=== PATIENT | male | born 1965 | race African-American/Black ===

== ENCOUNTER 2018-05-07 08:12 | Observation (INO) ==
[2018-05-07] MEDS ORDERED: Chlorhexidine Gluconate 2% 1 Pack (2 Cloths) TOPICAL SCH (09:15)
[2018-05-07] MEDS ORDERED: Metoprolol Tartrate 25 MG Tablet PO SCH (09:15)
[2018-05-07] MEDS ORDERED: Insulin NovoLIN Regular Correctional Sugar Inj SQ SCH (09:30)
[2018-05-07 09:32] LABS: Baso # (Auto) 0.1 th/mm3 (0.0-0.2); Baso % (Auto) 0.8 % (0.0-2.0); Eos # (Auto) 0.1 th/mm3 (0.0-0.4); Hematocrit 32.5 % (39.0-51.0); Hemoglobin 10.7 gm/dL (13.0-17.0); Lymph # (Auto) 1.9 th/mm3 (1.0-4.8); Lymph % (Auto) 26.9 % (9.0-44.0); Mean Corpuscular HGB Conc 32.8 % (32.0-36.0); Mean Corpuscular Hemoglobin 31.3 pg (27.0-34.0); Mean Corpuscular Volume 95.5 fL (80.0-100.0); Mean Platelet Volume 9.9 fL (7.0-11.0); Mono # (Auto) 0.7 th/mm3 (0.0-0.9); Mono % (Auto) 9.3 % (0.0-8.0); Neut # (Auto) 4.4 th/mm3 (1.8-7.7); Platelet Count 168 th/mm3 (150-450); Red Cell Distribution Width 13.7 % (11.6-17.2)
[2018-05-07 09:44] LABS: INR 1.1 Ratio; Prothrombin Time 10.7 sec (9.8-11.6)
[2018-05-07 09:53] LABS: Calcium 8.9 mg/dL (8.5-10.1); Carbon Dioxide 21.8 meq/L (21.0-32.0); Potassium 4.1 meq/L (3.5-5.1)
[2018-05-07] MEDS ORDERED: Sodium Chlor 0.9% Inj 500 ML IV.SIG SCH (10:00)
--- NOTE | 2018-05-07 11:52 | P.PNVS ---
- Pre-operative Note Planned Procedure: LEFT upper extremity AVF revision Interval History: Pt has been feeling well, no changes in health since H&P last week. Joselo HD yesterday without difficulty. Ready for procedure. Labs: WBC 7.0 th/mm3 (4.0-11.0) 05/07/18 09:10 RBC 3.40 mil/mm3 (4.50-5.90) L 05/07/18 09:10 Hgb 10.7 gm/dL (13.0-17.0) L 05/07/18 09:10 Hct 32.5 % (39.0-51.0) L 05/07/18 09:10 MCV 95.5 fL (80.0-100.0) 05/07/18 09:10 MCH 31.3 pg (27.0-34.0) 05/07/18 09:10 MCHC 32.8 % (32.0-36.0) 05/07/18 09:10 RDW 13.7 % (11.6-17.2) 05/07/18 09:10 Plt Count 168 th/mm3 (150-450) 05/07/18 09:10 MPV 9.9 fL (7.0-11.0) 05/07/18 09:10 INR 1.1 Ratio 05/07/18 09:10 Sodium 139 meq/L (136-145) 05/07/18 09:10 Potassium 4.1 meq/L (3.5-5.1) 05/07/18 09:10 Chloride 103 meq/L (98-107) 05/07/18 09:10 Carbon Dioxide 21.8 meq/L (21.0-32.0) 05/07/18 09:10 Anion Gap 14 meq/L (5-15) 05/07/18 09:10 BUN 64 mg/dL (7-18) H 05/07/18 09:10 Random Glucose 211 mg/dL (74-106) H 05/07/18 09:10 Calcium 8.9 mg/dL (8.5-10.1) 05/07/18 09:10 Blood: T&S Imaging: none needed Orders: NPO VANC 1g IV OCTOR Post-operative Destination: PACU Operative site marked: Yes Consent: Informed consent has been obtained from Ehsan Atkins. I have explained the procedure in detail and discussed the risks, benefits, and potential complications. All questions have been answered. Patient Contact Information: doesn't want anyone called
[2018-05-07] MEDS ORDERED: Glycopyrrolate Inj 1 MG/5 ML Syringe IV.PUSH ONE (12:00)
[2018-05-07] MEDS ORDERED: Sodium Chlor 0.9% Inj 500 ML IV.SIG ONE (12:00)
[2018-05-07] MEDS ORDERED: Succinylcholine Inj 100 MG/5 ML Syringe IV.PUSH ONE (12:00)
[2018-05-07] MEDS ORDERED: Phenylephrine/NS 1000 MCG/10ML Syringe IV.PUSH ONE (12:00)
[2018-05-07] MEDS ORDERED: Lidocaine PF 1% Inj 5 ML Syringe INFILTRATN ONE (12:00)
[2018-05-07] MEDS ORDERED: Heparin 10,000 UNITS/10 ML Vial (for IV use) ONE (12:27)
[2018-05-07] MEDS ORDERED: Protamine Sulfate Inj 50 MG/5 ML Vial ONE (12:27)
[2018-05-07] MEDS ORDERED: Thrombin Topical 20,000 UNIT Spray Kit TOPICAL ONE (12:27)
[2018-05-07] MEDS ORDERED: Heparin/NS PF Inj 500 ML ONE (12:28)
[2018-05-07] MEDS ORDERED: Etomidate Inj 20 MG/10 ML Ampul IV.PUSH ONE (12:32)
[2018-05-07] MEDS ORDERED: Bupivacaine PF 0.5% Inj 30 ML Vial ONE (12:35)
[2018-05-07] MEDS ORDERED: Etomidate Inj 40 MG/20 ML Vial IV.PUSH ONE (12:44)
[2018-05-07] MEDS ORDERED: Bupivacaine PF 0.5% Inj 30 ML Vial INFILTRATN ONE (14:14)
[2018-05-07] MEDS ORDERED: Bisacodyl 10 MG Supp RECTAL PRN (14:55)
[2018-05-07] MEDS ORDERED: Morphine Inj 4 MG/ML Vial IV.PUSH PRN (14:55)
--- NOTE | 2018-05-07 14:55 | P.OP ---
Date of procedure: 05/07/18 Procedure: L UE AVF revision (excision of aneurysmal BC AVF and interposition with 8mm PTFE ) Implants: 8mm PTFE Anesthesia: GETA Surgeon: Ole Hickman MD Respiratory Therapy Technician: Jasmina Elkins Estimated blood loss (mL): 350 IV fluids (mL): 1,350 Pathology: none sent Operation and Findings: large inflamed aneurysmal AVF with skin erosion x 3 successful interposition + thrill and + radial signal will need dialysis catheter placed
[2018-05-07] MEDS ORDERED: Insulin NovoLOG Aspart Correctional Sugar Inj SQ SCH (15:00)
[2018-05-07] MEDS ORDERED: fentaNYL Citrate Inj 100 MCG/2 ML Ampul ONE (15:21)
--- NOTE | 2018-05-07 15:31 | MP ---
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 PROCEDURE PERFORMED: Left upper extremity access revision (interposition with 8 mm PTFE). ATTENDING SURGEON: Ole Hickman MD. [employer] SURGEONS: Zia Sanchez, Ole No ANESTHESIA: General. INDICATION FOR PROCEDURE: Mr. Atkins is a 53-year-old gentleman with a left brachiocephalic fistula. 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 There was obvious skin erosion. He is taken to the operating room for repair. DESCRIPTION OF PROCEDURE: Informed consent was obtained from the patient and he was taken to the operating room and placed supine on the operating table. An appropriate timeout was taken to ensure the patient's identity, operative site and planned procedure. The administration of 1 gram of vancomycin was initiated prior to skin incision and will be discontinued after a single preoperative dose. Vancomycin was chosen because of the patient's end-stage renal disease. Everyone in the room agreed with the timeout and we proceeded. His left arm was prepped and draped. An incision was made longitudinally along the course of the fistula, carried down through subcutaneous tissue with electrocautery with tedious dissection, the proximal aspect of the fistula was encircled with a vessel loop. We then made a separate incision in the proximal aspect of the upper arm, carried down to subcutaneous tissue with electrocautery and the outflow of the fistula was identified and dissected free. We then connected these incisions and all 3 pseudoaneurysmal areas were dissected free from the skin. The patient was systemically heparinized with 3000 units of IV heparin. Proximal and distal control were obtained and the fistula was excised. The proximal and distal ends were spatulated and the 8 mm PTFE was spatulated and sewn end-to-end proximally and distally with 5-0 Prolene suture. At the completion, it was flushed and noted to be hemostatic. There was a thrill in the fistula and Doppler signal in the wrist. The heparin reversed with protamine. The wound was made hemostatic and closed with 2-0 Polysorb to superficialize the fistula and 3-0 Polysorb and 4-0 Monocryl. Sponge and needle counts were correct at the end of the case. I was present and scrubbed and performed the entire procedure. MD JUANY Muse/MOMO , 03:17 PM , 03:29 PM DIMPLE
[2018-05-07] MEDS ORDERED: Dextrose 50% in Water 50 ML Vial IV.PUSH PRN (15:52)
[2018-05-07] MEDS ORDERED: *Meperidine Inj 25 MG/ML Vial PERIprocedural Use ONLY ONE (15:59)
[2018-05-07] MEDS ORDERED: *morphine SULFATE 10 MG/ML PERIprocedure ONLY ONE ×2 (16:17→17:13)
[2018-05-07] MEDS ORDERED: Acetaminophen 325 MG Tablet PO PRN (16:22)
[2018-05-07] MEDS ORDERED: Sod Chloride 0.9% Inj 1,000 ML OTHER PRN ×2 (16:22)
[2018-05-07] MEDS ORDERED: Sod Chloride 0.9% Inj 1,000 ML IV.CONT PRN (16:22)
[2018-05-07] MEDS ORDERED: Gelatin 12 MM/7 MM Topical Foam TOPICAL PRN (16:22)
[2018-05-07] MEDS ORDERED: Heparin 10,000 UNITS/10 ML Vial (for IV use) OTHER PRN (16:22)
[2018-05-07] MEDS ORDERED: Albumin Human 25% Inj 100 ML IV.SIG PRN (16:22)
[2018-05-07] MEDS ORDERED: Heparin 10,000 UNITS/10 ML Vial (for IV use) IV.FLUSH PRN (16:22)
--- NOTE | 2018-05-07 20:22 | ECG ---
Date Performed: 05/07/2018 Time Performed: 08:41:13 PTAGE: 53 years EKG: Sinus rhythm LOW QRS VOLTAGE IN EXTREMITY LEADS PATTERN CONSISTENT WITH PULMONARY DISEASE SEPTAL MYOCARDIAL INFAR CTION , OF INDETERMINATE AGE INFERIOR MYOCARDIAL INFARCTION , PROBABLY OLD ABNORMAL ECG PREVIOUS TRACING : 12/14/2014 19.57 No significant change DOCTOR: Tori Wheeler Interpretating Date/Time 05/07/2018 20:20:38
[2018-05-07] MEDS ORDERED: *Ondansetron Inj 4 MG/2 ML Vial PERIprocedural Use ONLY ONE (20:23)
[2018-05-07] MEDS: Senna/Docusate Sodium 8.6/50 MG Tablet PO SCH (22:01)
[2018-05-07] MEDS: Carvedilol 12.5 MG Tablet PO SCH (22:01)
[2018-05-07] MEDS: Furosemide 40 MG Tablet PO SCH (22:01)
[2018-05-07] MEDS: Gabapentin 300 MG Capsule PO SCH (22:18)
[2018-05-08 03:27] LABS: Hematocrit 34.4 % (39.0-51.0); Hemoglobin 11.3 gm/dL (13.0-17.0); Mean Corpuscular HGB Conc 32.8 % (32.0-36.0); Mean Corpuscular Hemoglobin 31.5 pg (27.0-34.0); Mean Corpuscular Volume 96.2 fL (80.0-100.0); Mean Platelet Volume 9.7 fL (7.0-11.0); Platelet Count 185 th/mm3 (150-450); Red Blood Count 3.57 mil/mm3 (4.50-5.90); Red Cell Distribution Width 13.9 % (11.6-17.2); White Blood Count 9.2 th/mm3 (4.0-11.0)
[2018-05-08 03:49] LABS: Calcium 8.4 mg/dL (8.5-10.1); Carbon Dioxide 22.9 meq/L (21.0-32.0); Potassium 4.2 meq/L (3.5-5.1)
[2018-05-08] MEDS: Insulin NovoLOG Aspart Correctional Sugar Inj SQ SCH ×3 (04:15→12:29)
--- NOTE | 2018-05-08 07:02 | P.PNVS ---
Subjective Post Op Day #: 1 Procedure: L UE access revision (resection of pseudoaneurysm x 3 and interposition) Subjective/Hospital Course: nauseated last night but better today c/o hungry pain controlled hand ok Objective Vital Signs / I&O: Vital Signs 05/07/18 09:19 05/07/18 15:27 05/07/18 15:45 Temperature 98 F 96.9 F L Pulse Rate 81 71 69 Respiratory Rate 20 18 18 Blood Pressure 128/71 120/58 L 97/54 L Pulse Oximetry 98 93 L 94 L 05/07/18 16:00 05/07/18 16:03 05/07/18 16:15 Temperature Pulse Rate 63 65 Respiratory Rate 18 18 Blood Pressure 97/54 L 132/75 Pulse Oximetry 94 L 100 99 05/07/18 17:15 05/07/18 18:15 05/07/18 20:04 Temperature Pulse Rate 59 L 61 71 Respiratory Rate 18 18 Blood Pressure 107/55 L 106/51 L Pulse Oximetry 99 99 05/07/18 20:10 05/08/18 00:00 05/08/18 04:00 Temperature 97.3 F L 98 F Pulse Rate 57 L 71 79 Respiratory Rate 18 16 16 Blood Pressure 111/62 112/59 L Pulse Oximetry 99 100 Intake & Output 05/07/18 05/08/18 05/08/18 18:59 06:59 18:59 Intake Total 2350 / 2350 Output Total 350 / 350 Balance 1999 / 1999 Weight 153.1 kg Intake: IV 1000 / 1000 Heparin/NS PF Inj 500 ML @ 0 500 / 500 mls/hr .ROUTE .STK-MED ONE Rx#: [id number] NS Inj 500 ML @ 30 mls/hr IV. 500 / 500 SIG .Q10H [facility] Rx#:[id number] Anesthesia Amount 1350 / 1350 Output: Estimated Blood Loss 350 / 350 Other: Weight On Admission 153.1 kg Exam: L UE with + thrill mild serosanguinous drainage on dressing hand ok Laboratory Results - last 24 hr 05/07/18 05/07/18 05/07/18 09:06 09:10 09:10 WBC 7.0 RBC 3.40 L Hgb 10.7 L Hct 32.5 L MCV 95.5 MCH 31.3 MCHC 32.8 RDW 13.7 Plt Count 168 MPV 9.9 Neut % (Auto) 62.0 Lymph % (Auto) 26.9 [place] % (Auto) 9.3 H Eos % (Auto) 1.0 Baso % (Auto) 0.8 Neut # (Auto) 4.4 Lymph # (Auto) 1.9 [place] # (Auto) 0.7 Eos # (Auto) 0.1 Baso # (Auto) 0.1 WBC Differential . Differential Comment Auto diff final PT INR Sodium 139 Potassium 4.1 Chloride 103 Carbon Dioxide 21.8 Anion Gap 14 BUN 64 H Creatinine 10.34 H* Estimated GFR 6 L POC Glucose 221 H Random Glucose 211 H Calcium 8.9 Blood Type Blood Type Recheck Antibody Screen 05/07/18 05/07/18 05/07/18 09:10 09:10 16:21 WBC RBC Hgb Hct MCV MCH MCHC RDW Plt Count MPV Neut % (Auto) Lymph % (Auto) [place] % (Auto) Eos % (Auto) Baso % (Auto) Neut # (Auto) Lymph # (Auto) [place] # (Auto) Eos # (Auto) Baso # (Auto) WBC Differential Differential Comment PT 10.7 INR 1.1 Sodium Potassium Chloride Carbon Dioxide Anion Gap BUN Creatinine Estimated GFR POC Glucose 153 H Random Glucose Calcium Blood Type A Positive Blood Type Recheck Not needed Antibody Screen Negative 05/07/18 05/08/18 05/08/18 22:05 03:03 03:03 WBC 9.2 RBC 3.57 L Hgb 11.3 L Hct 34.4 L MCV 96.2 MCH 31.5 MCHC 32.8 RDW 13.9 Plt Count 185 MPV 9.7 Neut % (Auto) Lymph % (Auto) [place] % (Auto) Eos % (Auto) Baso % (Auto) Neut # (Auto) Lymph # (Auto) [place] # (Auto) Eos # (Auto) Baso # (Auto) WBC Differential Differential Comment PT INR Sodium 138 Potassium 4.2 Chloride 102 Carbon Dioxide 22.9 Anion Gap 13 BUN 69 H Creatinine 10.90 H* Estimated GFR 6 L POC Glucose 118 H Random Glucose 150 H Calcium 8.4 L Blood Type Blood Type Recheck Antibody Screen Assessment and Plan - Assessment (1) ESRD (end stage renal disease) on dialysis Code(s): N18.6 - End stage renal disease; Z99.2 - Dependence on renal dialysis Status: Acute - Plan POD#1 s/p L UE AVF revision 1. IR consulted for tunneled catheter placement today - not enough AVF left to safely get HD 2. HD after catheter 3. D/C after that Discharge Planning: today after catheter placement and HD
[2018-05-08 07:38] VITALS: RESP 20
[2018-05-08] MEDS: Carvedilol 12.5 MG Tablet PO SCH (08:28)
[2018-05-08] MEDS: Gabapentin 300 MG Capsule PO SCH (08:28)
[2018-05-08] MEDS: Senna/Docusate Sodium 8.6/50 MG Tablet PO SCH (08:29)
[2018-05-08] MEDS: Furosemide 40 MG Tablet PO SCH (08:29)
--- NOTE | 2018-05-08 09:14 | P.DS ---
Discharge Summary - Admission Date 05/07/18 15:01 - Admission Diagnosis (1) ESRD (end stage renal disease) on dialysis - Discharge Date 05/08/18 - Discharge Diagnosis (1) AVF (arteriovenous fistula) Status: Acute - Summary Brief History from admission: 53/m with ESRD on HD admitted for L UE access revision (resection of pseudoaneurysm x 3 and interposition) Procedure: L UE access revision (resection of pseudoaneurysm x 3 and interposition) Significant Findings: No hand pain Palpable radial pulse Incision intact Swelling (non pitting) to L UE present Abnormal Lab Results 05/07/18 05/07/18 05/07/18 09:06 09:10 09:10 WBC 7.0 RBC 3.40 L Hgb 10.7 L Hct 32.5 L MCV 95.5 MCH 31.3 MCHC 32.8 RDW 13.7 Plt Count 168 MPV 9.9 Neut % (Auto) 62.0 Lymph % (Auto) 26.9 [place] % (Auto) 9.3 H Eos % (Auto) 1.0 Baso % (Auto) 0.8 Neut # (Auto) 4.4 Lymph # (Auto) 1.9 [place] # (Auto) 0.7 Eos # (Auto) 0.1 Baso # (Auto) 0.1 WBC Differential . Differential Comment Auto diff final PT INR Sodium 139 Potassium 4.1 Chloride 103 Carbon Dioxide 21.8 Anion Gap 14 BUN 64 H Creatinine 10.34 H* Estimated GFR 6 L POC Glucose 221 H Random Glucose 211 H Calcium 8.9 Blood Type Blood Type Recheck Antibody Screen 05/07/18 05/07/18 05/07/18 09:10 09:10 16:21 WBC RBC Hgb Hct MCV MCH MCHC RDW Plt Count MPV Neut % (Auto) Lymph % (Auto) [place] % (Auto) Eos % (Auto) Baso % (Auto) Neut # (Auto) Lymph # (Auto) [place] # (Auto) Eos # (Auto) Baso # (Auto) WBC Differential Differential Comment PT 10.7 INR 1.1 Sodium Potassium Chloride Carbon Dioxide Anion Gap BUN Creatinine Estimated GFR POC Glucose 153 H Random Glucose Calcium Blood Type A Positive Blood Type Recheck Not needed Antibody Screen Negative 05/07/18 05/08/18 05/08/18 22:05 03:03 03:03 WBC 9.2 RBC 3.57 L Hgb 11.3 L Hct 34.4 L MCV 96.2 MCH 31.5 MCHC 32.8 RDW 13.9 Plt Count 185 MPV 9.7 Neut % (Auto) Lymph % (Auto) [place] % (Auto) Eos % (Auto) Baso % (Auto) Neut # (Auto) Lymph # (Auto) [place] # (Auto) Eos # (Auto) Baso # (Auto) WBC Differential Differential Comment PT INR Sodium 138 Potassium 4.2 Chloride 102 Carbon Dioxide 22.9 Anion Gap 13 BUN 69 H Creatinine 10.90 H* Estimated GFR 6 L POC Glucose 118 H Random Glucose 150 H Calcium 8.4 L Blood Type Blood Type Recheck Antibody Screen Hospital Course: 53/m with ESRD on HD admitted for L UE access revision (resection of pseudoaneurysm x 3 and interposition) POD 1 S/P L UE access revision (resection of pseudoaneurysm x 3 and interposition) Pt c/o nausea last night but better today pain controlled hand ok Pt clear for d/c post catheter placement and HD Pt to follow up in 3W E-forcse reviewed- 3D post operative pain medications Rx - Discharge Instructions DIET Your may resume a Dialysis Diet ACTIVITY Activity as tolerated No heavy lifting over a gallon of milk for 10 days No B/P readings or lab draws- LEFT arm NO tub baths or swimming until your incision is fully healed WOUND CARE Leave your incision open to air You may apply a dry dressing (4x4 then tape) if drainage is present Call the office to report an increase in pain, swelling, drainage or redness MEDICATIONS You may resume your daily home medications You were prescribed a narcotic pain medication which can cause constipation- Take with an over the counter stool softener You were prescribed a narcotic pain medication which can cause drowsiness- No driving while taking this medication Any questions or concerns: Call [facility] [phone] Discharge Plan - Discharge Disposition Patient Disposition: Discharge Home - Discharge Condition Condition: Good - Discharge Order Discharge Orders: Discharge Order (Routine); Ordered 05/08/18 Ordered By: Emily Martin - Discharge Details Anticipated Discharge Date: 05/08/18 Discharge Comment: D/C today after catheter placement and HD - Physicians Team Primary Care Provider: Primary Care Lois Bradley Attending Provider: Ole Hickman Other Providers: Garry Villalta MD - Rxs /Orders / Referrals /Forms Prescriptions: New oxycodone-acetaminophen [Percocet] 5-325 mg Tablet 1 tab PO Q4-6H PRN (Reason: Pain) 3 Days Qty: 18 RF: 0 Continue atorvastatin 20 mg Tablet 20 mg PO DAILY carvedilol [Coreg] 12.5 mg Tablet 12.5 mg PO BID Catapres furosemide [Lasix] 40 mg Tablet 40 mg PO BID gabapentin [Neurontin] 300 mg Capsule 300 mg PO BID insulin aspart U-100 [Novolog U-100 Insulin aspart] 100 unit/mL Solution 1 sliding scale dose SUB-Q UD insulin glargine [Lantus U-100 Insulin] 100 unit/mL Solution 50 unit SUB-Q BID Norvasc Referrals: Primary Care Lois Bradley [Primary Care Provider] - See Instructions Ole Hickman MD [Physician] - See Instructions (Your post op follow up is scheduled on 06/08/18 at 11:00) - Discharge Instructions Additional Instructions: DIET Your may resume a Dialysis Diet ACTIVITY Activity as tolerated No heavy lifting over a gallon of milk for 10 days No B/P readings or lab draws- LEFT arm NO tub baths or swimming until your incision is fully healed WOUND CARE Leave your incision open to air You may apply a dry dressing (4x4 then tape) if drainage is present Call the office to report an increase in pain, swelling, drainage or redness MEDICATIONS You may resume your daily home medications You were prescribed a narcotic pain medication which can cause constipation- Take with an over the counter stool softener You were prescribed a narcotic pain medication which can cause drowsiness- No driving while taking this medication
[2018-05-08] MEDS ORDERED: ceFAZolin 2 GM Premix Inj 2 GM/50 ML PIGGYBACK IV.SIG ONE (09:51)
[2018-05-08] MEDS ORDERED: fentaNYL Citrate Inj 250 MCG/5 ML Ampul ONE (09:53)
[2018-05-08] MEDS ORDERED: Lidocaine 1%/Epinephrine 1:100,000 Inj 30 ML Vial ONE (10:28)
[2018-05-08] MEDS ORDERED: *Heparin 10,000 UNITS/10 ML Vial Periprocedural ONLY ONE (10:28)
--- NOTE | 2018-05-08 11:03 | P.RAD ---
Post Procedure Progress Note - Pre Procedure Diagnosis (1) ESRD (end stage renal disease) on dialysis - Post Procedure Diagnosis (1) ESRD (end stage renal disease) on dialysis - Procedure Information Procedure Date: 05/08/18 Supervising Radiologist: Billy Bustamante MD Estimated blood loss (mL): 2 Anesthesia: Local, Conscious Sedation - Plan of Activity Patient to Unit: ROPU Patient Condition: Fair Additional Comments: PermCath placed via the right IJ catheter in good position OK for use. See PACS Report for procedural detail/treatment.
[2018-05-08 12:29] VITALS: BP 115/67; PULSE 86; TEMP 98.9; O2SAT 98
--- NOTE | 2018-05-08 14:32 | P.CONNP ---
<Tasneem Samayoa - Last Filed: 05/08/18 14:22> History of Present Illness Service: Nephrology Consult date: 05/08/18 Primary Care Provider: No Primary Care Physician Family Provider: No Primary Care Physician Chief Complaint: AVF pseudoaneurysm History of Present Illness: This is a 53 y/o morbidly obese AAM who was admitted for left arm AVF repair. He had pseudoaneurysm, repaired by Dr. Hickman yesterday. PMH includes ESRD, DM II, CHF, JILLIAN, anemia, and HTN. He had Permcath placed this morning, has tunneling edema, therefore we are required to use a low flow rate. He is alert and oriented, not in distress. He was seen during HD, and has a discharge order for later today. He follows with Dr. Vu in [place]. Review of Systems All other systems reviewed negative except as stated in HPI [facility] - History History Provided By: Patient - Medical History Medical History: Medical History (Last Updated 05/07/18 @ 09:18 by Amelia Reyes) AV fistula CHF (congestive heart failure) Colonoscopy planned Diabetes mellitus Dialysis AV fistula infection ESRD (end stage renal disease) HTN (hypertension) Sleep apnea - Surgical History Surgical History: Surgical History (Last Updated 05/07/18 @ 09:18 by Amelia Reyes) Hx of tonsillectomy - Tobacco History Second Hand Smoke Exposure: No Smoking Status: Never smoker - Alcohol History How Often Do You Have a Drink Containing Alcohol: Monthly or less - Substance Use History Substance History: Active Abuse - Substance Use Type Marijuana Status: Active Frequency: rarely, last time in february Reason for Use: Calm Down Crack/Cocaine Status: Active Frequency: three weeks ago - Travel History History of Recent Travel: No Recent Travel in the [facility] Within the Last 8 Weeks: No Medications and Allergies Allergies Allergy/AdvReac Type Severity Reaction Status Date / Time No Known Allergies Allergy Uncoded 09/24/14 07:33 Home Medications Medication Instructions Recorded Confirmed Type Catapres 05/07/18 History Norvasc 05/07/18 05/07/18 History atorvastatin 20 mg PO DAILY 05/07/18 05/07/18 History carvedilol [Coreg] 12.5 mg PO BID 05/07/18 05/07/18 History furosemide [Lasix] 40 mg PO BID 05/07/18 05/07/18 History gabapentin [Neurontin] 300 mg PO BID 05/07/18 05/07/18 History insulin aspart U-100 [Novolog 1 sliding scale dose SUB-Q UD 05/07/18 05/07/18 History U-100 Insulin aspart] insulin glargine [Lantus U-100 50 unit SUB-Q BID 05/07/18 05/07/18 History Insulin] Active Medications: Active Medications Acetaminophen (Tylenol) 650 mg PO UNSCH PRN PRN Reason: SEE LABEL COMMENTS Aspirin (Aspirin Chew) 81 mg PO DAILY [facility] Last Admin: 05/08/18 08:28 Dose: 81 mg Atorvastatin Calcium (Lipitor) 20 mg PO DAILY [facility] Last Admin: 05/08/18 08:28 Dose: 20 mg Bisacodyl (Dulcolax Supp) 10 mg RECTAL DAILY PRN PRN Reason: SEVERE CONSITIPATION Carvedilol (Coreg) 12.5 mg PO BID [facility] Last Admin: 05/08/18 08:28 Dose: 12.5 mg Chlorhexidine Gluconate (Chlorhexidine 2% Cloth) 3 pack [employer] [facility] Stop: 05/10/18 09:01 Last Admin: 05/07/18 09:44 Dose: 3 pack Clonidine HCl (Catapres) 0.1 mg PO UNSCH PRN PRN Reason: SEE LABEL COMMENTS Dextrose (D50w Vial) 50 ml IV.PUSH UNSCH PRN PRN Reason: PER HYPOGLYCEMIA PROTOCOL Diphenhydramine HCl (Benadryl) 25 mg PO UNSCH PRN PRN Reason: SEE LABEL COMMENTS Epoetin James (Epogen Inj) 4,000 unit IV.PUSH UNSCH PRN PRN Reason: SEE LABEL COMMENTS Furosemide (Lasix) 40 mg PO BID [facility] Last Admin: 05/08/18 08:29 Dose: 40 mg Gabapentin (Neurontin) 300 mg PO DAILY [facility] Last Admin: 05/08/18 08:28 Dose: 300 mg Gelatin (Gelfoam 12 Mm/7 Mm Topical) 1 foam TOPICAL PRN PRN PRN Reason: help stop bleeding from site Gentamicin Sulfate (Gentamicin Inj) 20 mg OTHER WITH DIALYSIS PRN PRN Reason: Dwell Gentamycin Lock Glucagon (Glucagon Inj) 1 mg OTHER PRN PRN PRN Reason: for Hypoglycemia Protocol Heparin Sodium (Porcine) (Heparin Inj) 5,000 units SQ Q8HR [facility] Heparin Sodium (Porcine) (Heparin Inj) 8,000 units IV.FLUSH WITH DIALYSIS PRN PRN Reason: for machine prime Heparin Sodium (Porcine) (Heparin Inj) 1,000 units OTHER WITH DIALYSIS PRN PRN Reason: Dwell Heparin to Fill Catheter Hydromorphone HCl (Dilaudid) 2 mg PO Q4H PRN PRN Reason: PAIN SCALE 6 TO 10 Last Admin: 05/08/18 04:21 Dose: 2 mg Lactated Ringer's (Lr 1000 Ml Inj) 1,000 mls @ 30 mls/hr IV.SIG .Q24H [facility] Stop: 05/10/18 09:01 Last Admin: 05/07/18 09:30 Dose: 30 mls/hr Sodium Chloride (Ns Inj) 500 mls @ 30 mls/hr IV.SIG .Q10H [facility] Stop: 05/10/18 09:01 Last Infusion: 05/07/18 12:43 Dose: Infused Albumin Human (Flexbumin 25% Inj) 100 mls @ 60 mls/hr IV.SIG WITH DIALYSIS PRN PRN Reason: hypotension / volume replace Sodium Chloride (Ns Inj) 1,000 mls @ 0 mls/hr OTHER .Q0M PRN PRN Reason: for prime and rinse back Sodium Chloride (Ns Inj) 1,000 mls @ 200 mls/hr OTHER .Q5H PRN PRN Reason: for dialyzer flush PRN Sodium Chloride (Ns Inj) 1,000 mls @ 0 mls/hr IV.CONT .Q0M PRN PRN Reason: hypotension / volume replace Insulin Aspart (Novolog Insulin Correctional Sugar Inj) 0 unit SQ ACHS [facility]; Protocol Last Admin: 05/08/18 12:29 Dose: Not Given Insulin Human Regular (Novolin R Correctional Sugar Inj) 0 units SQ [employer]OR [facility] ; Protocol Stop: 05/10/18 09:20 Last Admin: 05/07/18 09:45 Dose: 4 units Lactulose (Lactulose Liq) 30 ml PO DAILY PRN PRN Reason: SEVERE CONSITIPATION Mannitol (Mannitol Inj) 12.5 gm IV.PUSH PRN PRN PRN Reason: hypotension / volume replace Metoprolol Tartrate (Lopressor) 25 mg PO [employer] [facility] Stop: 05/10/18 09:01 Last Admin: 05/07/18 09:20 Dose: 25 mg Miscellaneous Information (Mis Nursing Information) 1 each OTHER UNSCH PRN PRN Reason: SEE LABEL COMMENTS Stop: 05/08/18 15:27 Morphine Sulfate (Morphine Inj) 2 mg IV.PUSH Q1H PRN PRN Reason: BREAKTHROUGH PAIN Nitroglycerin (Nitrostat Sl) 0.4 mg SL Q5M PRN PRN Reason: CHEST PAIN Oxycodone HCl (Roxicodone) 5 mg PO Q4H PRN PRN Reason: PAIN SCALE 1 TO 5 Last Admin: 05/08/18 08:29 Dose: 5 mg Povidone Iodine (Betadine 5% Antisepsis Kit) 1 applicatio EACH NARE [employer] [facility] Stop: 05/10/18 09:01 Last Admin: 05/07/18 09:44 Dose: 1 applicatio Senna/Docusate Sodium (Carmelina-Colace) 1 tab PO BID [facility] Last Admin: 05/08/18 08:29 Dose: 1 tab Sennosides (Senokot) 17.2 mg PO Q12H PRN PRN Reason: Moderate Constipation Sodium Chloride (Ns Flush) 5 ml IV.FLUSH PRN PRN PRN Reason: flush each lumen during HD Last Admin: 05/08/18 08:29 Dose: 5 ml Sodium Chloride (Ns Flush) 0 ml IV.FLUSH PRN PRN PRN Reason: SEE DOSE INSTRUCTIONS Exam Vital signs: Vital Signs 05/07/18 15:27 05/07/18 15:45 05/07/18 16:00 Temperature 96.9 F L Pulse Rate 71 69 63 Respiratory Rate 18 18 18 Blood Pressure 120/58 L 97/54 L 97/54 L Pulse Oximetry 93 L 94 L 94 L 05/07/18 16:03 05/07/18 16:15 05/07/18 17:15 Temperature Pulse Rate 65 59 L Respiratory Rate 18 18 Blood Pressure 132/75 107/55 L Pulse Oximetry 100 99 99 05/07/18 18:15 05/07/18 20:04 05/07/18 20:10 Temperature Pulse Rate 61 71 57 L Respiratory Rate 18 18 Blood Pressure 106/51 L 111/62 Pulse Oximetry 99 99 05/08/18 00:00 05/08/18 03:53 05/08/18 04:00 Temperature 97.3 F L 98 F Pulse Rate 71 78 79 Respiratory Rate 16 16 Blood Pressure 112/59 L Pulse Oximetry 100 05/08/18 04:53 05/08/18 05:53 05/08/18 06:53 Temperature Pulse Rate 61 71 78 Respiratory Rate Blood Pressure Pulse Oximetry 05/08/18 07:00 05/08/18 07:30 05/08/18 07:35 Temperature 98.2 F Pulse Rate 80 81 Respiratory Rate 20 Blood Pressure 118/70 Pulse Oximetry 92 L 97 05/08/18 08:00 05/08/18 09:00 05/08/18 11:15 Temperature 97.9 F Pulse Rate 84 86 76 Respiratory Rate 20 Blood Pressure 163/63 H Pulse Oximetry 97 05/08/18 11:30 05/08/18 12:00 05/08/18 12:27 Temperature 98.9 F Pulse Rate 75 74 74 Respiratory Rate 20 20 20 Blood Pressure 177/64 H 169/68 H 115/67 Pulse Oximetry 97 100 98 Intake & Output 05/07/18 05/08/18 05/08/18 18:59 06:59 18:59 Intake Total 2350 / 2350 40 / 40 Output Total 350 / 350 35 / 35 Balance 1999 / 1999 5 / 5 Weight 153.1 kg Intake: IV 1000 / 1000 Heparin/NS PF Inj 500 ML @ 0 500 / 500 mls/hr .ROUTE .STK-MED ONE Rx#: [id number] NS Inj 500 ML @ 30 mls/hr IV. 500 / 500 SIG .Q10H [facility] Rx#:[id number] Oral 40 / 40 Anesthesia Amount 1350 / 1350 Output: Urine 35 / 35 Estimated Blood Loss 350 / 350 Other: Date of Last Bowel Movement 05/05/18 Weight On Admission 153.1 kg - Constitutional no acute distress Comments: morbidly obese - Routine HEENT Exam Head: Present: normocephalic - Routine Neck Exam Present: supple, full ROM - Routine Respiratory Exam Present: CTA bilaterally. Absent: accessory muscle use - Routine Cardiovascular Exam Present: RRR, S1, S2 - Routine Abdominal Exam Present: soft, normoactive bowel sounds - Routine Extremities Exam Present: full ROM, pulses intact, AV fistula, vascular access. Absent: edema Comments: Permcath right chest - Routine Skin Exam Present: intact, warm - Routine Neurological Exam Present: alert, oriented X3, CN II-XII intact Results - Lab Results 05/08/18 03:03 05/08/18 03:03 Most recent lab results Calcium 8.4 mg/dL (8.5-10.1) L 05/08/18 03:03 Assessment and Plan - Assessment (1) ESRD (end stage renal disease) on dialysis Code(s): N18.6 - End stage renal disease; Z99.2 - Dependence on renal dialysis Status: Chronic Plan: Seen during dialysis today on a 2K, 250 BFR, goal 1-2 liters. He has outpatient HD arranged in [place], and has next HD Sunday. Advised to limit dietary K intake for now. Limit PO fluid intake Permcath will need to be maintained for 1 month, will see vascular at the end of the week. Stable for discharge from renal perspective. (2) AVF (arteriovenous fistula) Code(s): I77.0 - Arteriovenous fistula, acquired Status: Acute Plan: Vascular following, has appointment at the end of the week. PermCath x 1 month, advised not to shower. Protect left arm from procedures. (3) Anemia Code(s): D64.9 - Anemia, unspecified Status: Acute Plan: Epogen with HD. <Garry Villalta - Last Filed: 05/08/18 19:45> History of Present Illness Primary Care Provider: No Primary Care Physician Family Provider: No Primary Care Physician [facility] - Medical History Medical History: Medical History (Last Updated 05/07/18 @ 09:18 by Amelia Reyes) AV fistula CHF (congestive heart failure) Colonoscopy planned Diabetes mellitus Dialysis AV fistula infection ESRD (end stage renal disease) HTN (hypertension) Sleep apnea - Surgical History Surgical History: Surgical History (Last Updated 05/07/18 @ 09:18 by Amelia Reyes) Hx of tonsillectomy Exam Vital signs: Vital Signs 05/07/18 20:04 05/07/18 20:10 05/08/18 00:00 Temperature 97.3 F L Pulse Rate 71 57 L 71 Respiratory Rate 18 16 Blood Pressure 111/62 Pulse Oximetry 99 05/08/18 03:53 05/08/18 04:00 05/08/18 04:53 Temperature 98 F Pulse Rate 78 79 61 Respiratory Rate 16 Blood Pressure 112/59 L Pulse Oximetry 100 05/08/18 05:53 07/18/18 06:53 05/08/18 07:00 Temperature Pulse Rate 71 78 80 Respiratory Rate Blood Pressure Pulse Oximetry 05/08/18 07:30 05/08/18 07:35 05/08/18 08:00 Temperature 98.2 F Pulse Rate 81 84 Respiratory Rate 20 Blood Pressure 118/70 Pulse Oximetry 92 L 97 05/08/18 09:00 05/08/18 11:15 05/08/18 11:30 Temperature 97.9 F Pulse Rate 86 76 75 Respiratory Rate 20 20 Blood Pressure 163/63 H 177/64 H Pulse Oximetry 97 97 05/08/18 12:00 05/08/18 12:27 Temperature 98.9 F Pulse Rate 74 74 Respiratory Rate 20 20 Blood Pressure 169/68 H 115/67 Pulse Oximetry 100 98 Intake & Output 05/08/18 05/08/18 05/09/18 06:59 18:59 06:59 Intake Total 40 / 40 Output Total 35 / 35 2600 / 2600 Balance 5 / 5 -2600 / -2600 Intake: Oral 40 / 40 Output: Urine 35 / 35 Hemodialysis Amount 2600 / 2600 Other: Date of Last Bowel Movement 05/05/18 Results - Lab Results 05/08/18 03:03 05/08/18 03:03 Most recent lab results Calcium 8.4 mg/dL (8.5-10.1) L 05/08/18 03:03 Assessment and Plan - Assessment (1) ESRD (end stage renal disease) on dialysis Code(s): N18.6 - End stage renal disease; Z99.2 - Dependence on renal dialysis Status: Chronic (2) AVF (arteriovenous fistula) Code(s): I77.0 - Arteriovenous fistula, acquired Status: Acute (3) Anemia Code(s): D64.9 - Anemia, unspecified Status: Acute - Attending Attestation patient was seen and examined. Agree with above assessment and plan.
[2018-05-08] MEDS ORDERED: Heparin - SQ 10,000 UNITS/ML Vial SQ SCH (15:00)
--- NOTE | 2018-05-15 16:58 | IR ---
EXAM DATE: 05/08/2018 11:43 AM EDT AGE/SEX: 53 years / Male INDICATIONS: Dialysis patient needs cathter for dialysis while his AV fistula matures. CLINICAL DATA: This is the patient's initial encounter. Patient reports that signs and symptoms have been present for 2 days and indicates a pain score of 7/10. MEDICAL/SURGICAL HISTORY: Hypertension. Diabetes. Renal disease, end stage. COPD, Pacemaker . Lt AVF COMPARISON: . FLUORO TIME (min): 1.49 IMAGE SERIES: 1 ACCESS SITE: SEDATION TIME (min): 30 MEDICATION(S): 1 mg midazolam (Versed) IV 50 mcg fentanyl (Sublimaze) IV Prophylactic antibiotics were administered with appropriate pre-procedure timing. Vancomycin within 2 hrs of procedure, Ancef (or alternative) within 1 hr of procedure. DEVICE(S): 23 cm maya cath . . PROCEDURE: 1. Ultrasound-guided venipuncture. 2. PermaCath placement. 3. Conscious sedation with continuous EKG and oximetry monitoring. The risks, benefits and alternatives to the procedure were explained and verbal and written consent w as obtained. The site was prepped in sterile fashion. Full sterile technique was used, including ca p, mask, sterile gloves and gown and a large sterile sheet. Hand hygiene and 2% chlorhexidine and/or betadine/alcohol prep was utilized per protocol for cutaneous antisepsis. Sterile gel and sterile p robe cover were utilized for ultrasound guidance. The skin and subcutaneous tissues were infiltrated with local anesthetic solution. With ultrasound and fluoroscopic guidance a dermatotomy was created over the right internal jugular v ein. A micropuncture set was used to access the targeted vein and serial dilatation was performed to accept the prescribed length catheter. A subcutaneous tunnel was created in a retrograde fashion th e catheter was pulled through the tunnel. The catheter was flushed and assembled and locked with hep sivan. The catheter was sutured in place. Conscious sedation was performed with the prescribed dosages and duration as above in the presence of an independent trained radiology nurse to assist in the monitoring of the patient. EKG and oximetry remained stable throughout the procedure. The patient tolerated the procedure well and there were n o complications. The patient was sent to post anesthesia recovery in stable condition. 1. Uncomplicated PermaCath placement as above. Electronically signed by: Billy Bustamante MD 05/15/2018 4:57 PM EDT
== END 2018-05-08 17:35 | disposition home or self-care (01) ==
LOC: HCPC 08:12 → HSDI 08:12 → HSDC 08:12 → HCPC 20:30
PROVIDERS: ADMIT Surgery; ATTEND Surgery
PROC: AVGFTUE (ICD-10-PCS; 2018-05-07 12:43)

== ENCOUNTER 2018-12-12 06:16 | Observation (INO) ==
[2018-12-12] MEDS ORDERED: Protamine Sulfate Inj 50 MG/5 ML Vial ONE (06:41)
[2018-12-12] MEDS ORDERED: Bupivacaine PF 0.5% Inj 10 ML Vial ONE (06:47)
[2018-12-12] MEDS ORDERED: Heparin 10,000 UNITS/10 ML Vial (for IV use) ONE (06:47)
[2018-12-12] MEDS ORDERED: Heparin/NS PF Inj 500 ML ONE (06:48)
[2018-12-12] MEDS ORDERED: Thrombin Topical Soln 20,000 UNIT Vial TOPICAL ONE (06:48)
[2018-12-12] MEDS ORDERED: Sodium Chlor 0.9% Inj 250 ML ONE (06:50)
[2018-12-12] MEDS ORDERED: Metoprolol Tartrate 25 MG Tablet PO ONE (07:15)
[2018-12-12] MEDS ORDERED: Chlorhexidine Gluconate 2% 1 Pack (2 Cloths) TOPICAL ONE (07:15)
[2018-12-12] MEDS ORDERED: Sodium Chlor 0.9% Inj 500 ML IV.CONT ONE (07:15)
[2018-12-12] MEDS ORDERED: Acetaminophen 500 MG Tablet ONE (07:26)
[2018-12-12] MEDS ORDERED: Gabapentin 400 MG Capsule ONE (07:27)
[2018-12-12] MEDS ORDERED: fentaNYL Citrate Inj 250 MCG/5 ML Ampul ONE (07:28)
--- NOTE | 2018-12-12 07:36 | XR ---
EXAM DATE: 12/12/2018 7:31 AM EST AGE/SEX: 53 years / Male INDICATIONS: Evaluate for pneumonia, pneumothorax or communicable disease. Preop chest for left arm permacath revision today. CLINICAL DATA: This is the patient's initial encounter. Patient reports that signs and symptoms have been present for 1 day and indicates a pain score of 0/10. MEDICAL/SURGICAL HISTORY: Cardiovascular disease. dialysis, renal failure Pacemaker. permacath COMPARISON: No prior exams available for comparison. FINDINGS: A single AP view of the chest demonstrates the lungs to be symmetrically aerated without evidence of mass, infiltrate or effusion. Left-sided pacemaker/defibrillator unchanged. Right jugular vascular ca theter unchanged. The cardiomediastinal contours are unremarkable. Osseous structures are intact. CONCLUSION: No acute cardiopulmonary disease. Electronically signed by: Lei Aparicio MD Board Certified Radiologist 12/12/2018 7:35 AM EST
--- NOTE | 2018-12-12 07:45 | P.HPVS ---
History of Present Illness Chief Complaint: Aneurysmal LEFT arm AVF History of Present Illness: 53 yo male with ESRD with functioning LEFT arm AVF aneurysmal proximal AVF no skin erosion - Inpatient Certification If this patient has been admitted as an Inpatient: I certify that the inpatient services were ordered in accordance with Medicare regulations governing the order. This includes certification that hospital inpatient services are reasonable and necessary and in the case of services not specified as inpatient-only under 42 CFR 419.22(n), that they are appropriately provided as inpatient services in accordance to with the 2-midnight benchmark under 43 CFR 412.3(e) Estimated Total Length of Stay (Days): 2 Plans for Post Hospital Care: Home Review of Systems All other systems reviewed negative except as stated in HPI [facility] - History History Provided By: Patient - Medical History Medical History: Medical History (Last Reviewed 12/12/18 @ 07:44 by Ole Hickman MD) AV fistula CHF (congestive heart failure) Colonoscopy planned Diabetes mellitus Dialysis AV fistula infection ESRD (end stage renal disease) HTN (hypertension) Sleep apnea - Surgical History Surgical History: Surgical History (Last Reviewed 12/12/18 @ 07:44 by Ole Hickman MD) AICD (automatic cardioverter/defibrillator) present Hx of tonsillectomy - Tobacco History Second Hand Smoke Exposure: No Tobacco Use In Past 30 Days: No Smoking Status: Never smoker - Alcohol History How Often Do You Have a Drink Containing Alcohol: Never - Substance Use History Substance History: No History of Abuse - Travel History History of Recent Travel: No Recent Travel in the [place] Within the Last 8 Weeks: No Recent Travel Out of the Country Within the Last 8 Weeks: No Medications and Allergies Active Medications: Active Medications Lactated Ringer's (Lr 1000 Ml Inj) 1,000 mls @ 30 mls/hr IV.CONT .Q24H ONE Stop: 12/13/18 07:14 Sodium Chloride (Ns Inj) 500 mls @ 30 mls/hr IV.CONT .[id number] ONE Stop: 12/12/18 23:54 Allergies Allergy/AdvReac Type Severity Reaction Status Date / Time No Known Allergies Allergy Verified 12/12/18 07:10 Home Medications Medication Instructions Recorded Confirmed Type atorvastatin 20 mg PO DAILY 05/07/18 12/12/18 History carvedilol [Coreg] 12.5 mg PO BID 05/07/18 12/12/18 History furosemide [Lasix] 40 mg PO BID 05/07/18 12/12/18 History gabapentin [Neurontin] 300 mg PO BID 05/07/18 12/12/18 History insulin aspart U-100 [Novolog 10 units SUB-Q BID 05/07/18 12/12/18 History U-100 Insulin aspart] insulin glargine [Lantus U-100 75 unit SUB-Q BID 05/07/18 12/12/18 History Insulin] Physical Exam Vital Signs / I&O: Vital Signs 12/12/18 07:19 Temperature 97.4 F L Pulse Rate 78 Respiratory Rate 20 Blood Pressure 149/86 H Pulse Oximetry 100 Intake & Output 12/11/18 12/12/18 12/12/18 18:59 06:59 18:59 Weight 151.1 kg Other: Weight On Admission 151.1 kg Neuro: alert, oriented, no distress HEENT: NC/AT Neck: no JVD Heart: reg rate Lungs: occ wheeze Vascular: L UE incisions intact aneurysmal proximal AVF Laboratory Results - last 24 hr 12/12/18 07:13 POC Glucose 254 H Impressions Chest X-Ray 12/12/18 00:00 CONCLUSION: No acute cardiopulmonary disease. Caprini VTE Risk Assessment Caprini VTE Risk Assessment: No/Low Risk (score <= 1) (intraop heparin) Caprini Risk Assessment Model: Point Value = 1 Point Value = 2 Point Value = 3 Point Value = 5 Age 41-60 Minor surgery BMI > 25 kg/m2 Swollen legs Varicose veins or History of unexplained or recurrent spontaneous Oral contraceptives or hormone replacement Sepsis (< 1 month) Serious lung disease, including pneumonia (< 1 month) Abnormal pulmonary function Acute myocardial infarction Congestive heart failure (< 1 month) History of inflammatory bowel disease Medical patient at bed rest Age 61-74 Arthroscopic surgery Major open surgery (> 45 min) Laparoscopic surgery (> 45 min) Malignancy Confined to bed (> 72 hours) Immobilizing plaster cast Central venous access Age >= 75 History of VTE Family history of VTE Factor V Leiden Prothrombin [id number] Lupus anticoagulant Anticardiolipin antibodies Elevated serum homocysteine Heparin-induced thrombocytopenia Other congenital or acquired thrombophilia Stroke (< 1 month) Elective arthroplasty Hip, pelvis, or leg fracture Acute spinal cord injury (< 1 month) Prophylaxis Regimen: Total Risk Factor Score Risk Level Prophylaxis Regimen 0-1 Low Early ambulation 2 Moderate Order ONE of the following: *Sequential Compression Device (SCD) *Heparin 5000 units SQ BID 3-4 Higher Order ONE of the following medications: *Heparin 5000 units SQ TID *Enoxaparin/Lovenox 40 mg SQ daily (WT < 150 kg, CrCl > 30 mL/min) *Enoxaparin/Lovenox 30 mg SQ daily (WT < 150 kg, CrCl > 10-29 mL/min) *Enoxaparin/Lovenox 30 mg SQ BID (WT < 150 kg, CrCl > 30 mL/min) AND/OR *Sequential Compression Device (SCD) 5 or more Highest Order ONE of the following medications: *Heparin 5000 units SQ TID (Preferred with Epidurals) *Enoxaparin/Lovenox 40 mg SQ daily (WT < 150 kg, CrCl > 30 mL/min) *Enoxaparin/Lovenox 30 mg SQ daily (WT < 150 kg, CrCl > 10-29 mL/min) *Enoxaparin/Lovenox 30 mg SQ BID (WT < 150 kg, CrCl > 30 mL/min) AND *Sequential Compression Device (SCD) Assessment and Plan - Assessment (1) ESRD (end stage renal disease) on dialysis Code(s): N18.6 - End stage renal disease; Z99.2 - Dependence on renal dialysis Status: Chronic (2) AVF (arteriovenous fistula) Code(s): I77.0 - Arteriovenous fistula, acquired Status: Acute - Plan LEFT arm access revision POA for obs and HD
[2018-12-12] MEDS ORDERED: Gabapentin 400 MG Capsule PO ONE (07:51)
[2018-12-12] MEDS ORDERED: Acetaminophen 500 MG Tablet PO ONE (07:51)
[2018-12-12] MEDS ORDERED: Lidocaine PF 1% Inj 5 ML Syringe OTHER ONE (07:57)
[2018-12-12] MEDS ORDERED: Sodium Chlor 0.9% Inj 250 ML IV.CONT ONE (07:57)
[2018-12-12] MEDS ORDERED: Phenylephrine/NS 1000 MCG/10ML Syringe IV.PUSH ONE (07:57)
[2018-12-12] MEDS ORDERED: Succinylcholine Inj 100 MG/5 ML Syringe IV.PUSH ONE (07:57)
[2018-12-12 08:31] LABS: Baso # (Auto) 0.1 th/mm3 (0.0-0.2); Baso % (Auto) 1.2 % (0.0-2.0); Eos # (Auto) 0.1 th/mm3 (0.0-0.4); Eos % (Auto) 1.4 % (0.0-4.0); Hematocrit 34.6 % (39.0-51.0); Lymph # (Auto) 1.8 th/mm3 (1.0-4.8); Lymph % (Auto) 26.7 % (9.0-44.0); Mean Corpuscular HGB Conc 31.9 % (32.0-36.0); Mean Corpuscular Hemoglobin 30.1 pg (27.0-34.0); Mean Corpuscular Volume 94.5 fL (80.0-100.0); Mono # (Auto) 0.7 th/mm3 (0.0-0.9); Mono % (Auto) 10.1 % (0.0-8.0); Neut % (Auto) 60.6 % (16.0-70.0); Platelet Count 163 th/mm3 (150-450); Red Blood Count 3.66 mil/mm3 (4.50-5.90); Red Cell Distribution Width 15.2 % (11.6-17.2); White Blood Count 6.7 th/mm3 (4.0-11.0)
[2018-12-12 08:43] LABS: Activated Partial Thrombo Time 23.6 sec (23.4-31.7); Prothrombin Time 10.4 sec (9.8-11.6)
[2018-12-12 08:50] LABS: Carbon Dioxide 27.6 meq/L (21.0-32.0); Potassium 3.9 meq/L (3.5-5.1)
[2018-12-12] MEDS ORDERED: Morphine Inj 4 MG/ML Vial IV.PUSH PRN (09:48)
[2018-12-12] MEDS ORDERED: Bisacodyl 10 MG Supp RECTAL PRN (09:48)
--- NOTE | 2018-12-12 09:48 | P.OP ---
- Preoperative Diagnosis (1) ESRD (end stage renal disease) on dialysis (2) AVF (arteriovenous fistula) - Postoperative Diagnosis (1) ESRD (end stage renal disease) on dialysis (2) AVF (arteriovenous fistula) Date of procedure: 12/12/18 Procedure: LEFT UE access revision (interposition w 6mm PTFE) Implants: 6mm PTFE Anesthesia: GETA Surgeon: Ole Hickman MD [employer] Clerk: Ulices Feliciano Estimated blood loss (mL): 50 IV fluids (mL): 650 Pathology: none sent Operation and Findings: aneurysmal proximal AVF resected and replaced with 6mm PTFE remainder of AVF clear for continued use away from incision
[2018-12-12] MEDS ORDERED: Dextrose 50% in Water 50 ML Vial IV.PUSH PRN (09:51)
[2018-12-12] MEDS ORDERED: Heparin - SQ 10,000 UNITS/ML Vial SQ SCH (10:00)
--- NOTE | 2018-12-12 10:18 | MP ---
cc: Ole Hickman MD DATE OF OPERATION: 12/12/2018 PREOPERATIVE DIAGNOSIS: Aneurysmal left upper extremity arteriovenous fistula. POSTOPERATIVE DIAGNOSIS: Aneurysmal left upper extremity arteriovenous fistula. PROCEDURE PERFORMED: Left upper extremity access revision (6 mm PTFE interposition). ATTENDING SURGEON: Ole Hickman MD. INFORMATION TECHNOLOGY OFFICER SURGEON: Ulices Moscoso ANESTHESIA: General. INDICATIONS: Mr. Atkins is a 53-year-old gentleman with a left upper extremity arteriovenous fistula that has been revised in its midsection, but now has a proximal aneurysmal segment. He is taken to the operating room for surgical excision. DESCRIPTION OF PROCEDURE: Informed consent was obtained from the patient was taken to the operating room and placed supine on the operating table. An appropriate timeout was taken to ensure the patient's identity, operative site and planned procedure. The administration of a gram of vancomycin was initiated prior to skin incision and will be discontinued after single preoperative dose. Vancomycin was chosen because of the patient has end-stage renal disease. His left arm was prepped and draped. Incision made along the course of the fistula, carried down through subcutaneous tissue with electrocautery. The distal aspect of the aneurysm, which was PTFE, was encircled with a vessel loop and then we dissected back proximally nearly to the brachial artery, but encompassing the whole aneurysmal segment. The patient was systemically heparinized with 3000 units of IV heparin. Proximal and distal control of the aneurysmal segment were obtained with profunda clamps and a segment was excised. The proximal and distal ends were spatulated and a 6 mm PTFE was brought up of the field, spatulated, and cut appropriately and sewn end-to-end proximally and distally with running 5-0 Prolene suture. At the completion it was flushed and noted to be hemostatic. There was a nice thrill in the fistula and a Doppler signal in the wrist. After reverse protamine the wound was infiltrated with Marcaine, made hemostatic and closed with 2-0 Polysorb, 3-0 Polysorb and 4-0 Monocryl. The sponge and needle counts were correct at the end of the case. I was present, scrubbed, and performed the entire procedure. MD JUANY Muse/lesa , 09:54 AM , 09:59 AM DIMPLE
[2018-12-12] MEDS: Insulin NovoLOG Aspart Correctional Sugar Inj SQ SCH ×3 (11:15→21:38)
[2018-12-12] MEDS ORDERED: Heparin 10,000 UNITS/10 ML Vial (for IV use) OTHER PRN ×2 (15:13)
[2018-12-12] MEDS ORDERED: Sod Chloride 0.9% Inj 1,000 ML IV.CONT PRN (15:13)
[2018-12-12] MEDS ORDERED: Gelatin 12 MM/7 MM Topical Foam TOPICAL PRN (15:13)
[2018-12-12] MEDS ORDERED: Sod Chloride 0.9% Inj 1,000 ML OTHER PRN ×2 (15:13)
[2018-12-12] MEDS ORDERED: Albumin Human 25% Inj 100 ML IV.SIG PRN (15:13)
[2018-12-12] MEDS ORDERED: Acetaminophen 325 MG Tablet PO PRN (15:13)
--- NOTE | 2018-12-12 15:26 | P.CONNP ---
History of Present Illness Service: Nephrology Consult date: 12/12/18 Requesting Physician: Ole Hickman Reason for Consult: End-stage renal disease for hemodialysis Primary Care Provider: No Primary Care Physician Chief Complaint: AV fistula repair History of Present Illness: Patient is a 53-year-old morbidly obese male with history of diabetes, hypertension, end-stage renal disease on hemodialysis at [place] for 5 hours 15 minutes on Sunday, Sunday and Sunday, he had AV fistula left arm which had aneurysmal dilatation, he was here for AV fistula revision and PTFE graft insertion which was done, postoperatively he is doing well he denies any chest pain or shortness of breath, he does have peripheral edema present. Review of Systems Constitutional: Denies anorexia, Denies body ache(s), Denies chills, Denies daytime sleepiness, Denies excessive sweating, Denies fatigue, Denies fever(s), Denies headache(s), Denies increased appetite, Denies lack of energy, Denies malaise, Denies night sweats, Denies weakness, Denies weight gain, Denies weight loss, Denies other Eyes: Denies blind spots, Denies blurry vision, Denies bulging eyes, Denies change in vision, Denies double vision, Denies discharge, Denies dry eyes, Denies floaters, Denies irritation, Denies itchy eyes, Denies loss of vision, Denies pain, Denies requires corrective lenses, Denies sensitivity to light, Denies other Ears, Nose, Mouth, and Throat: Denies abnormal hearing, Denies bleeding gums, Denies bad breath, Denies change in voice, Denies dental pain, Denies difficulty swallowing, Denies dizziness, Denies dry mouth, Denies ear discharge , Denies ear pain, Denies facial pain, Denies headache(s), Denies hearing loss, Denies hoarseness, Denies lip swelling, Denies nosebleed, Denies mouth lesions, Denies mouth pain, Denies nasal congestion, Denies nasal discharge, Denies nasal obstruction, Denies nasal trauma, Denies neck lump, Denies neck pain, Denies nose pain, Denies pain with swallowing, Denies poor balance, Denies post nasal drip, Denies ringing in the ears, Denies sinus pain, Denies sinus pressure , Denies sore throat, Denies throat swelling, Denies tongue swelling, Denies other Cardiovascular: Reports foot swelling, Reports leg swelling, Reports shortness of breath with activity Respiratory: Reports shortness of breath Gastrointestinal: Denies abdominal pain, Denies belching, Denies black, tarry stools, Denies bloating, Denies bright, red blood in stools, Denies change in bowel habits, Denies constant urge to pass stool, Denies change in stools, Denies coffee ground vomit, Denies constipation, Denies cramping, Denies difficulty swallowing, Denies excessive passing of gas, Denies feeling full early, Denies heartburn, Denies incontinent of stools, Denies loose stools, Denies nausea, Denies pain with swallowing, Denies vomiting, Denies vomiting blood, Denies other Genitourinary: Denies blood in semen, Denies blood in urine, Denies decreased urination, Denies difficulty urinating, Denies difficulty with ejaculations, Denies erectile dysfunction, Denies genital lesions, Denies genital pain, Denies painful urination, Denies side pain, Denies frequent nighttime urination , Denies painful ejaculations, Denies penile discharge, Denies scrotal swelling , Denies testicle lump, Denies testicle pain, Denies urinary frequency, Denies urinary hesitancy, Denies urinary incontinence, Denies urinary urgency, Denies other Skin/Breast: Reports other Neurologic: Denies abnormal hearing, Denies abnormal movements, Denies abnormal speech, Denies abnormal walking, Denies behavioral changes, Denies burning sensations, Denies confusion, Denies dizziness, Denies fainting, Denies frequent falls, Denies headache(s), Denies lack of coordination, Denies localized weakness, Denies loss of vision, Denies memory loss, Denies numbness, Denies other visual disturbances, Denies radiating pain, Denies restless legs, Denies convulsions, Denies seizure-like activity, Denies sensory deficit, Denies tingling, Denies tingling/numbness/burning sensations, Denies tremor(s), Denies unsteadiness, Denies weakness, Denies other Psychiatric: Denies abnormal sleep pattern, Denies anxiety, Denies behavioral changes, Denies change in appetite, Denies change in sex drive, Denies confusion , Denies depression, Denies difficulty concentrating, Denies hearing things others do not hear, Denies hopelessness, Denies irritability, Denies lack of enjoyment, Denies memory loss, Denies mood swings, Denies panic attacks, Denies paranoia, Denies seeing things others do not see, Denies sensing things others do not sense, Denies tactile hallucinations, Denies thoughts of hurting/killing others, Denies thoughts of hurting/killing yourself, Denies other Hematologic/Lymphatic: Denies easy bleeding, Denies easy bruising, Denies enlarged lymph nodes, Denies other Allergic/Immunologic: Denies GI upset with certain foods, Denies hives, Denies itchy eyes, Denies lip swelling, Denies seasonal runny nose, Denies throat swelling, Denies tongue swelling, Denies wheezing, Denies other PMFSH - History History Provided By: Patient - Medical History Medical History: Medical History (Last Updated 12/12/18 @ 15:22 by Ada Malik MD) Morbidly obese AV fistula CHF (congestive heart failure) Colonoscopy planned Diabetes mellitus Dialysis AV fistula infection ESRD (end stage renal disease) HTN (hypertension) Sleep apnea - Surgical History Surgical History: Surgical History (Last Reviewed 12/12/18 @ 15:22 by Ada Malik MD) AICD (automatic cardioverter/defibrillator) present Hx of tonsillectomy - Family History Family History: Family History (Last Updated 12/12/18 @ 15:23 by Ada Malik MD) Mother Family history of hypertension - Social History I have reviewed the patient's Social History: Yes - Tobacco History Second Hand Smoke Exposure: No Tobacco Use In Past 30 Days: No Smoking Status: Never smoker - Alcohol History How Often Do You Have a Drink Containing Alcohol: Never - Substance Use History Substance History: No History of Abuse - Travel History History of Recent Travel: No Recent Travel in the [place] Within the Last 8 Weeks: No Recent Travel Out of the Country Within the Last 8 Weeks: No Medications and Allergies Active Medications: Active Medications Aspirin (Aspirin) 325 mg PO DAILY ROSIE Atorvastatin Calcium (Lipitor) 20 mg PO DAILY ROSIE Bisacodyl (Dulcolax Supp) 10 mg RECTAL DAILY PRN PRN Reason: SEVERE CONSITIPATION Carvedilol (Coreg) 12.5 mg PO BID ROSIE Dextrose (D50w Vial) 50 ml IV.PUSH UNSCH PRN PRN Reason: PER HYPOGLYCEMIA PROTOCOL Furosemide (Lasix) 40 mg PO BID ROSIE Gabapentin (Neurontin) 300 mg PO BID ROSIE Glucagon (Glucagon Inj) 1 mg OTHER PRN PRN PRN Reason: for Hypoglycemia Protocol Heparin Sodium (Porcine) (Heparin Inj) 5,000 units SQ Q8H ROSIE Hydromorphone HCl (Dilaudid) 2 mg PO Q4H PRN PRN Reason: PAIN SCALE 6 TO 10 Lactated Ringer's (Lr 1000 Ml Inj) 1,000 mls @ 30 mls/hr IV.CONT .Q24H ONE Stop: 12/13/18 07:14 Sodium Chloride (Ns Inj) 500 mls @ 30 mls/hr IV.CONT .[id number] ONE Stop: 12/12/18 23:54 Insulin Aspart (Novolog Insulin Correctional Sugar Inj) 0 unit SQ ACHS AND 3AM ROSIE; Protocol Lactulose (Lactulose Liq) 30 ml PO DAILY PRN PRN Reason: SEVERE CONSITIPATION Miscellaneous Information ([facility] Information) 1 each OTHER UNSCH PRN PRN Reason: SEE LABEL COMMENTS Stop: 12/13/18 10:19 Morphine Sulfate (Morphine Inj) 2 mg IV.PUSH Q1H PRN PRN Reason: BREAKTHROUGH PAIN Oxycodone HCl (Roxicodone) 5 mg PO Q4H PRN PRN Reason: PAIN SCALE 1 TO 5 Senna/Docusate Sodium (Carmelina-Colace) 1 tab PO BID ROSIE Sennosides (Senokot) 17.2 mg PO Q12H PRN PRN Reason: Moderate Constipation Allergies Allergy/AdvReac Type Severity Reaction Status Date / Time No Known Allergies Allergy Verified 12/12/18 07:10 Home Medications Medication Instructions Recorded Confirmed Type atorvastatin 20 mg PO DAILY 05/07/18 12/12/18 History carvedilol [Coreg] 12.5 mg PO BID 05/07/18 12/12/18 History furosemide [Lasix] 40 mg PO BID 05/07/18 12/12/18 History gabapentin [Neurontin] 300 mg PO BID 05/07/18 12/12/18 History insulin aspart U-100 [Novolog 10 units SUB-Q BID 05/07/18 12/12/18 History U-100 Insulin aspart] insulin glargine [Lantus U-100 75 unit SUB-Q BID 05/07/18 12/12/18 History Insulin] Exam Vital signs: Vital Signs 12/12/18 07:19 12/12/18 10:18 12/12/18 10:30 Temperature 97.4 F L 97.4 F L Pulse Rate 78 65 63 Respiratory Rate 20 15 12 Blood Pressure 149/86 H 136/70 119/73 Pulse Oximetry 100 98 97 12/12/18 10:45 12/12/18 11:00 12/12/18 11:15 Temperature Pulse Rate 62 60 60 Respiratory Rate 14 12 10 L Blood Pressure 119/60 101/51 L 116/59 L Pulse Oximetry 97 97 99 12/12/18 11:30 12/12/18 12:00 12/12/18 13:00 Temperature Pulse Rate 61 62 62 Respiratory Rate 11 L 14 17 Blood Pressure 125/63 123/73 131/73 Pulse Oximetry 99 100 99 12/12/18 14:00 12/12/18 15:05 Temperature Pulse Rate 66 63 Respiratory Rate 13 15 Blood Pressure 143/89 H 146/88 H Pulse Oximetry 99 99 Intake & Output 12/11/18 12/12/18 12/12/18 18:59 06:59 18:59 Intake Total 1150 / 1150 Output Total 50 / 50 Balance 1100 / 1100 Weight 151.1 kg Intake: IV 500 / 500 Heparin/NS PF Inj 500 ML @ 0 500 / 500 mls/hr .[facility]TE [facility] ONE Rx#: [id number] Anesthesia Amount 650 / 650 Output: Blood Draw 50 / 50 Other: Weight On Admission 151.1 kg Narrative: GENERAL: Well-nourished, well-developed morbidly obese patient. SKIN: Warm and dry. HEAD: Normocephalic. EYES: No scleral icterus. No injection or drainage. NECK: Supple, trachea midline. No JVD or lymphadenopathy. CARDIOVASCULAR: Regular rate and rhythm without murmurs, gallops, or rubs. RESPIRATORY: Breath sounds equal bilaterally. No accessory muscle use. GASTROINTESTINAL: Abdomen soft, non-tender, nondistended. EXTREMITIES: 2+ edema AV graft left arm positive bruit NEUROLOGICAL: Awake, alert, and oriented x 3. Non-focal. Results - Lab Results 12/12/18 08:09 12/12/18 08:09 Most recent lab results Calcium 10.0 mg/dL (8.5-10.1) 12/12/18 08:09 Assessment and Plan - Assessment (1) ESRD (end stage renal disease) on dialysis Code(s): N18.6 - End stage renal disease; Z99.2 - Dependence on renal dialysis Status: Chronic Plan: Hemodialysis will be maintained on Sunday, Sunday and Sunday, use bigger dialyzer, discussed with dialysis team orders written for dialysis for tomorrow , high blood flow and high dialysate flow Continue to provide hemodialysis on Sunday and Sunday He may be discharged after dialysis tomorrow AV graft positive bruit (2) S/P arteriovenous (AV) graft placement Code(s): Z98.890 - Other specified postprocedural states Status: Acute Plan: Post surgery positive bruit (3) Anemia Code(s): D64.9 - Anemia, unspecified Status: Acute Plan: Continue with Procrit (4) Diabetes Code(s): E11.9 - Type 2 diabetes mellitus without complications Status: Acute Plan: Continue to monitor (3) Anemia Qualifiers: Chronic kidney disease stage: on chronic dialysis
[2018-12-12] MEDS: Senna/Docusate Sodium 8.6/50 MG Tablet PO SCH (21:36)
[2018-12-12] MEDS: Carvedilol 12.5 MG Tablet PO SCH (21:36)
[2018-12-12] MEDS: Furosemide 40 MG Tablet PO SCH (21:36)
[2018-12-12] MEDS: Gabapentin 300 MG Capsule PO SCH (21:36)
[2018-12-13] MEDS: Insulin NovoLOG Aspart Correctional Sugar Inj SQ SCH ×4 (03:15→23:13)
--- NOTE | 2018-12-13 07:54 | P.PNVS ---
Subjective Post Op Day #: 1 Procedure: L UE access revision Subjective/Hospital Course: over night, pt developed localized swelling around incision hand ok and skin not threatened Objective Vital Signs / I&O: Vital Signs 12/12/18 10:18 12/12/18 10:30 12/12/18 10:45 Temperature 97.4 F L Pulse Rate 65 63 62 Respiratory Rate 15 12 14 Blood Pressure 136/70 119/73 119/60 Pulse Oximetry 98 97 97 12/12/18 11:00 12/12/18 11:15 12/12/18 11:30 Temperature Pulse Rate 60 60 61 Respiratory Rate 12 10 L 11 L Blood Pressure 101/51 L 116/59 L 125/63 Pulse Oximetry 97 99 99 12/12/18 12:00 12/12/18 13:00 12/12/18 14:00 Temperature Pulse Rate 62 62 66 Respiratory Rate 14 17 13 Blood Pressure 123/73 131/73 143/89 H Pulse Oximetry 100 99 99 12/12/18 15:05 12/12/18 18:33 12/12/18 20:00 Temperature 97.7 F Pulse Rate 63 68 80 Respiratory Rate 15 17 Blood Pressure 146/88 H 118/60 Pulse Oximetry 99 12/12/18 20:35 12/13/18 00:45 12/13/18 04:00 Temperature 97.7 F 97.7 F 98.0 F Pulse Rate 80 89 83 Respiratory Rate 18 18 18 Blood Pressure 167/82 H 152/79 H 114/62 Pulse Oximetry 97 95 95 12/13/18 07:47 Temperature 97.4 F L Pulse Rate 74 Respiratory Rate 18 Blood Pressure 122/65 Pulse Oximetry 96 Intake & Output 12/12/18 12/13/18 12/13/18 18:59 06:59 18:59 Intake Total 1150 / 1150 260 / 260 Output Total 50 / 50 Balance 1100 / 1100 260 / 260 Weight 151.1 kg 151.2 kg Intake: IV 500 / 500 Heparin/NS PF Inj 500 ML @ 0 500 / 500 mls/hr [facility] Rx#: [id number] Anesthesia Amount 650 / 650 Other 260 / 260 Output: Blood Draw 50 / 50 Other: # Voids 3 Date of Last Bowel Movement 12/11/18 Weight On Admission 151.1 kg Exam: L UE with fullness around incision, likely hematoma hand ok + thrill in AVF Laboratory Results - last 24 hr 12/12/18 12/12/18 12/12/18 08:09 08:09 08:09 WBC 6.7 RBC 3.66 L Hgb 11.0 L Hct 34.6 L MCV 94.5 MCH 30.1 MCHC 31.9 L RDW 15.2 Plt Count 163 MPV 10.0 Neut % (Auto) 60.6 Lymph % (Auto) 26.7 [place] % (Auto) 10.1 H Eos % (Auto) 1.4 Baso % (Auto) 1.2 Neut # (Auto) 4.0 Lymph # (Auto) 1.8 [place] # (Auto) 0.7 Eos # (Auto) 0.1 Baso # (Auto) 0.1 WBC Differential . Differential Comment Auto diff final PT 10.4 INR 1.0 APTT 23.6 Sodium 136 Potassium 3.9 Chloride 102 Carbon Dioxide 27.6 Anion Gap 6 BUN 24 H Creatinine 6.95 H Estimated GFR 10 L POC Glucose Random Glucose 268 H Calcium 10.0 Blood Type Blood Type Recheck Antibody Screen 12/12/18 12/12/18 12/12/18 08:09 10:28 17:25 WBC RBC Hgb Hct MCV MCH MCHC RDW Plt Count MPV Neut % (Auto) Lymph % (Auto) [place] % (Auto) Eos % (Auto) Baso % (Auto) Neut # (Auto) Lymph # (Auto) [place] # (Auto) Eos # (Auto) Baso # (Auto) WBC Differential Differential Comment PT INR APTT Sodium Potassium Chloride Carbon Dioxide Anion Gap BUN Creatinine Estimated GFR POC Glucose 205 H 247 H Random Glucose Calcium Blood Type A Positive Blood Type Recheck Not needed Antibody Screen Negative 12/12/18 12/13/18 12/13/18 21:38 03:04 07:42 WBC RBC Hgb Hct MCV MCH MCHC RDW Plt Count MPV Neut % (Auto) Lymph % (Auto) [place] % (Auto) Eos % (Auto) Baso % (Auto) Neut # (Auto) Lymph # (Auto) [place] # (Auto) Eos # (Auto) Baso # (Auto) WBC Differential Differential Comment PT INR APTT Sodium Potassium Chloride Carbon Dioxide Anion Gap BUN Creatinine Estimated GFR POC Glucose 297 H 279 H 274 H Random Glucose Calcium Blood Type Blood Type Recheck Antibody Screen Assessment and Plan - Assessment (1) ESRD (end stage renal disease) on dialysis Code(s): N18.6 - End stage renal disease; Z99.2 - Dependence on renal dialysis Status: Chronic (2) AVF (arteriovenous fistula) Code(s): I77.0 - Arteriovenous fistula, acquired Status: Acute - Plan POD#1 s/p L UE interposition I think he has a maddison-graft hematoma that should be evacuated To OR today
--- NOTE | 2018-12-13 07:58 | P.PNVS ---
- Pre-operative Note Planned Procedure: L UE hematoma evacuation, possible access revision Interval History: Pt is POD#1 s/p L UE access revision, developed soft hematoma overnight no immediate skin threat but needs evacuation Labs: WBC 6.7 th/mm3 (4.0-11.0) 12/12/18 08:09 RBC 3.66 mil/mm3 (4.50-5.90) L 12/12/18 08:09 Hgb 11.0 gm/dL (13.0-17.0) L 12/12/18 08:09 Hct 34.6 % (39.0-51.0) L 12/12/18 08:09 MCV 94.5 fL (80.0-100.0) 12/12/18 08:09 MCH 30.1 pg (27.0-34.0) 12/12/18 08:09 MCHC 31.9 % (32.0-36.0) L 12/12/18 08:09 RDW 15.2 % (11.6-17.2) 12/12/18 08:09 Plt Count 163 th/mm3 (150-450) 12/12/18 08:09 MPV 10.0 fL (7.0-11.0) 12/12/18 08:09 INR 1.0 Ratio 12/12/18 08:09 Sodium 136 meq/L (136-145) 12/12/18 08:09 Potassium 3.9 meq/L (3.5-5.1) 12/12/18 08:09 Chloride 102 meq/L (98-107) 12/12/18 08:09 Carbon Dioxide 27.6 meq/L (21.0-32.0) 12/12/18 08:09 Anion Gap 6 meq/L (5-15) 12/12/18 08:09 BUN 24 mg/dL (7-18) H 12/12/18 08:09 Random Glucose 268 mg/dL (74-106) H 12/12/18 08:09 Calcium 10.0 mg/dL (8.5-10.1) 12/12/18 08:09 Blood: T&S active Imaging: ITS Impressions Chest X-Ray 12/12/18 00:00 CONCLUSION: No acute cardiopulmonary disease. Orders: NPO Vanc 1g IV OCTOR Post-operative Destination: PACU Operative site marked: Yes Consent: Informed consent has been obtained from Ehsan Atkins. I have explained the procedure in detail and discussed the risks, benefits, and potential complications. All questions have been answered.
[2018-12-13 08:05] LABS: Baso % (Auto) 0.6 % (0.0-2.0); Eos # (Auto) 0.1 th/mm3 (0.0-0.4); Eos % (Auto) 1.9 % (0.0-4.0); Hematocrit 33.5 % (39.0-51.0); Hemoglobin 10.8 gm/dL (13.0-17.0); Lymph # (Auto) 1.3 th/mm3 (1.0-4.8); Lymph % (Auto) 18.4 % (9.0-44.0); Mean Corpuscular HGB Conc 32.4 % (32.0-36.0); Mean Corpuscular Hemoglobin 30.1 pg (27.0-34.0); Mean Corpuscular Volume 93.1 fL (80.0-100.0); Mean Platelet Volume 10.1 fL (7.0-11.0); Mono # (Auto) 0.6 th/mm3 (0.0-0.9); Mono % (Auto) 8.7 % (0.0-8.0); Neut # (Auto) 4.8 th/mm3 (1.8-7.7); Neut % (Auto) 70.4 % (16.0-70.0); Platelet Count 146 th/mm3 (150-450); Red Cell Distribution Width 15.4 % (11.6-17.2); White Blood Count 6.8 th/mm3 (4.0-11.0)
[2018-12-13 08:35] LABS: Calcium 9.5 mg/dL (8.5-10.1); Carbon Dioxide 23.8 meq/L (21.0-32.0); Potassium 4.6 meq/L (3.5-5.1)
[2018-12-13 08:38] LABS: Hepatitits B Surface Antigen Nonreactive (Nonreactive)
[2018-12-13 09:08] LABS: Hepatitis A IgM Antibody Nonreactive (Nonreactive)
[2018-12-13] MEDS: Furosemide 40 MG Tablet PO SCH ×2 (09:28→21:19)
[2018-12-13] MEDS: Gabapentin 300 MG Capsule PO SCH ×2 (09:28→21:18)
[2018-12-13] MEDS: Senna/Docusate Sodium 8.6/50 MG Tablet PO SCH ×2 (09:28→21:18)
[2018-12-13] MEDS: Aspirin 325 MG Tablet PO SCH (09:29)
[2018-12-13] MEDS: Heparin - SQ 10,000 UNITS/ML Vial SQ SCH ×2 (09:29→21:20)
[2018-12-13] MEDS: Carvedilol 12.5 MG Tablet PO SCH ×2 (09:34→21:20)
--- NOTE | 2018-12-13 15:46 | P.PNNP ---
Subjective Interval history: Patient seen during hemodialysis left arm swelling and soft hematoma Physical Exam Vital signs: Vital Signs 12/12/18 18:33 12/12/18 20:00 12/12/18 20:35 Temperature 97.7 F 97.7 F Pulse Rate 68 80 80 Respiratory Rate 17 18 Blood Pressure 118/60 167/82 H Pulse Oximetry 97 12/13/18 00:45 12/13/18 04:00 12/13/18 07:47 Temperature 97.7 F 98.0 F 97.4 F L Pulse Rate 89 83 74 Respiratory Rate 18 18 18 Blood Pressure 152/79 H 114/62 122/65 Pulse Oximetry 95 95 96 12/13/18 11:39 12/13/18 15:19 Temperature 97.6 F 97.2 F L Pulse Rate 70 71 Respiratory Rate 18 18 Blood Pressure 140/77 141/78 H Pulse Oximetry 99 98 Intake & Output 12/12/18 12/13/18 12/13/18 18:59 06:59 18:59 Intake Total 1150 / 1150 260 / 260 Output Total 50 / 50 Balance 1100 / 1100 260 / 260 Weight 151.1 kg 151.2 kg Intake: IV 500 / 500 Heparin/NS PF Inj 500 ML @ 0 500 / 500 mls/hr .ROUTE .[facility] ONE Rx#: [id number] Anesthesia Amount 650 / 650 Other 260 / 260 Output: Blood Draw 50 / 50 Other: # Voids 3 Date of Last Bowel Movement 12/11/18 Weight On Admission 151.1 kg Narrative: GENERAL: Well-nourished, well-developed morbidly obese patient. SKIN: Warm and dry. HEAD: Normocephalic. EYES: No scleral icterus. No injection or drainage. NECK: Supple, trachea midline. No JVD or lymphadenopathy. CARDIOVASCULAR: Regular rate and rhythm without murmurs, gallops, or rubs. RESPIRATORY: Breath sounds equal bilaterally. No accessory muscle use. GASTROINTESTINAL: Abdomen soft, non-tender, nondistended. EXTREMITIES: 2+ edema AV graft left arm positive bruit NEUROLOGICAL: Awake, alert, and oriented x 3. Non-focal. Assessment and Plan - Assessment (1) ESRD (end stage renal disease) on dialysis Code(s): N18.6 - End stage renal disease; Z99.2 - Dependence on renal dialysis Status: Chronic Plan: Hemodialysis will be maintained on Sunday, Sunday and Sunday, Seen during hemodialysis plan to take off 5 L over 4 hours Continue supportive care Vascular surgery following AV fistula in left arm swelling (2) S/P arteriovenous (AV) graft placement Code(s): Z98.890 - Other specified postprocedural states Status: Acute Plan: Swelling in left arm (3) Anemia Code(s): D64.9 - Anemia, unspecified Status: Acute Qualifiers: Chronic kidney disease stage: on chronic dialysis Plan: Continue with Procrit (4) Diabetes Code(s): E11.9 - Type 2 diabetes mellitus without complications Status: Acute Plan: Continue to monitor
[2018-12-14] MEDS: Heparin - SQ 10,000 UNITS/ML Vial SQ SCH ×2 (02:37→10:13)
[2018-12-14] MEDS: Insulin NovoLOG Aspart Correctional Sugar Inj SQ SCH ×5 (03:32→21:56)
[2018-12-14] MEDS ORDERED: Chlorhexidine Gluconate 2% 1 Pack (2 Cloths) TOPICAL ONE (04:42)
[2018-12-14] MEDS ORDERED: Sodium Chlor 0.9% Inj 500 ML IV.SIG SCH (05:00)
[2018-12-14] MEDS: Senna/Docusate Sodium 8.6/50 MG Tablet PO SCH ×2 (08:17→21:55)
[2018-12-14] MEDS: Carvedilol 12.5 MG Tablet PO SCH ×2 (08:17→21:55)
[2018-12-14] MEDS: Gabapentin 300 MG Capsule PO SCH ×2 (08:17→21:55)
[2018-12-14] MEDS: Furosemide 40 MG Tablet PO SCH ×2 (08:17→21:55)
[2018-12-14] MEDS: Aspirin 325 MG Tablet PO SCH (08:18)
[2018-12-14] MEDS ORDERED: Phenylephrine/NS 1000 MCG/10ML Syringe IV.PUSH ONE (08:54)
[2018-12-14] MEDS ORDERED: Lidocaine PF 1% Inj 5 ML Syringe OTHER ONE (08:54)
[2018-12-14] MEDS ORDERED: Lidocaine 1% Inj 50 ML Vial ONE (09:04)
[2018-12-14] MEDS ORDERED: Heparin - SQ 10,000 UNITS/ML Vial ONE (09:06)
[2018-12-14] MEDS ORDERED: Sugammadex Inj 200 MG/2 ML Vial IV.PUSH ONE (09:46)
[2018-12-14] MEDS ORDERED: fentaNYL Citrate Inj 100 MCG/2 ML Ampul ONE (10:07)
[2018-12-14] MEDS ORDERED: ceFAZolin 2 GM Premix Inj 2 GM/50 ML PIGGYBACK IV.SIG ONE (10:18)
--- NOTE | 2018-12-14 10:36 | P.OP ---
Preoperative Diagnosis: Left upper extremity hematoma Postoperative Diagnosis: Left upper extremity hematoma Date of procedure: 12/14/18 Procedure: Evacuation of a left upper extremity hematoma and control bleeding Anesthesia: GUCCIA Surgeon: Shashi Mcduffie MD Estimated blood loss (mL): 10 Operation and Findings: Findings 1. left upper [place] hematoma was evacuated successfully. There is no active bleeding noted. Generalized oozing from the Subcutaneous tissue/muscle. That was controlled Successfully. 2. Left upper extremity fistula with good thrill. Operation details Patient was taken to the operating room, placed supine on the OR table. After general Endotracheal anesthesia, the patient Was prepped and draped in the standard sterile fashion. Timeout was called with the members in the OR in agreement. The left upper extremity incision was opened. Old hematoma was encountered and evacuated. No active bleeding was noted. Generalized Oozing from the subcutaneous tissue and muscles controlled using electrocautery. Wound is closed in multiple areas using Vicryl suture followed by nylon suture. Sterile dressing was applied. The patient tolerated the procedure well and was taken to recovery unit in stable condition.
[2018-12-14] MEDS ORDERED: SODIUM CHLOR 0.9% IV.SIG ONE (12:00)
[2018-12-14] MEDS ORDERED: DESMOPRESSIN IV.SIG ONE (12:00)
--- NOTE | 2018-12-14 17:36 | P.PNNP ---
Subjective Interval history: Patient is resting comfortably in bed. With no complaints at this time. Adeel wrap to left arm status post hematoma evacuation. <Lavinia Ziegler - Last Filed: 12/14/18 17:28> Physical Exam Vital signs: Vital Signs 12/13/18 20:00 12/13/18 20:25 12/14/18 00:45 Temperature 98.0 F 98.7 F Pulse Rate 95 H 90 77 Respiratory Rate 17 19 Blood Pressure 133/56 L 123/58 L Pulse Oximetry 96 93 L 12/14/18 05:30 12/14/18 07:40 12/14/18 09:59 Temperature 98.3 F 98.8 F 97.7 F Pulse Rate 84 79 70 Respiratory Rate 19 18 16 Blood Pressure 131/69 152/72 H 121/59 L Pulse Oximetry 94 L 95 93 L 12/14/18 10:15 12/14/18 10:30 12/14/18 10:35 Temperature 97.7 F Pulse Rate 68 68 Respiratory Rate 16 16 Blood Pressure 118/63 113/58 L Pulse Oximetry 95 99 99 12/14/18 11:56 12/14/18 15:50 Temperature 97.9 F 98.1 F Pulse Rate 67 86 Respiratory Rate 18 16 Blood Pressure 133/63 125/60 Pulse Oximetry 99 95 Intake & Output 12/13/18 12/14/18 12/14/18 18:59 06:59 18:59 Intake Total 161.34 / 161.34 Output Total 3900 / 3900 5 / 5 Balance -3900 / -3900 156.34 / 156.34 Intake: IV 61.34 / 61.34 DDAVP Inj 45.36 MCG In NS Inj 61.34 / 61.34 50 ML @ 122.68 mls/hr IV.SIG ONCE ONE Rx#:[id number] Anesthesia Amount 100 / 100 Output: Hemodialysis Amount 3900 / 3900 Estimated Blood Loss 5 / 5 Other: # Voids 1 Date of Last Bowel Movement 12/11/18 Narrative: GENERAL: Well-nourished, well-developed morbidly obese patient. SKIN: Warm and dry. HEAD: Normocephalic. EYES: No scleral icterus. No injection or drainage. NECK: Supple, trachea midline. No JVD or lymphadenopathy. CARDIOVASCULAR: Regular rate and rhythm without murmurs, gallops, or rubs. RESPIRATORY: Breath sounds equal bilaterally. No accessory muscle use. GASTROINTESTINAL: Abdomen soft, non-tender, nondistended. EXTREMITIES: Adeel wrap to left arm, status post hematoma evacuation, upper left extremity AV fistula, positive bruit NEUROLOGICAL: Awake, alert, and oriented x 3. Non-focal. <Lavinia Ziegler - Last Filed: 12/14/18 17:28> Vital signs: Vital Signs 12/13/18 20:00 12/13/18 20:25 12/14/18 00:45 Temperature 98.0 F 98.7 F Pulse Rate 95 H 90 77 Respiratory Rate 17 19 Blood Pressure 133/56 L 123/58 L Pulse Oximetry 96 93 L 12/14/18 05:30 12/14/18 07:40 12/14/18 09:59 Temperature 98.3 F 98.8 F 97.7 F Pulse Rate 84 79 70 Respiratory Rate 19 18 16 Blood Pressure 131/69 152/72 H 121/59 L Pulse Oximetry 94 L 95 93 L 12/14/18 10:15 12/14/18 10:30 12/14/18 10:35 Temperature 97.7 F Pulse Rate 68 68 Respiratory Rate 16 16 Blood Pressure 118/63 113/58 L Pulse Oximetry 95 99 99 12/14/18 11:56 12/14/18 15:50 Temperature 97.9 F 98.1 F Pulse Rate 67 86 Respiratory Rate 18 16 Blood Pressure 133/63 125/60 Pulse Oximetry 99 95 Intake & Output 12/13/18 12/14/18 12/14/18 18:59 06:59 18:59 Intake Total 161.34 / 161.34 Output Total 3900 / 3900 5 Balance -3900 / -3900 156.34 / 156.34 Intake: IV 61.34 / 61.34 DDAVP Inj 45.36 MCG In NS Inj 61.34 / 61.34 50 ML @ 122.68 mls/hr IV.SIG ONCE ONE Rx#:[id number] Anesthesia Amount 100 / 100 Output: Hemodialysis Amount 3900 / 3900 Estimated Blood Loss Other: # Voids 1 Date of Last Bowel Movement 12/11/18 <Ada Malik - Last Filed: 12/14/18 18:52> Assessment and Plan - Assessment (1) ESRD (end stage renal disease) on dialysis Code(s): N18.6 - End stage renal disease; Z99.2 - Dependence on renal dialysis Status: Chronic Plan: Hemodialysis will be maintained on Sunday, Sunday and Sunday, -Continue supportive care -Today, status post evacuation of hematoma in left upper extremity, AV fistula to left upper extremity with positive bruit. Adeel wrap to left upper extremity. (2) S/P arteriovenous (AV) graft placement Code(s): Z98.890 - Other specified postprocedural states Status: Acute Plan: Swelling in left arm, Adeel bandage, status post access revision,, developed a soft hematoma, evacuation of hematoma today. -Vascular surgery on case (3) Anemia Code(s): D64.9 - Anemia, unspecified Status: Acute Qualifiers: Chronic kidney disease stage: on chronic dialysis Plan: Continue with Procrit (4) Diabetes Code(s): E11.9 - Type 2 diabetes mellitus without complications Status: Acute Plan: Keep glucose between 140 and 180 while hospitalized -Continue to monitor <Lavinia Ziegler - Last Filed: 12/14/18 17:28> - Assessment (1) ESRD (end stage renal disease) on dialysis Code(s): N18.6 - End stage renal disease; Z99.2 - Dependence on renal dialysis Status: Chronic (2) S/P arteriovenous (AV) graft placement Code(s): Z98.890 - Other specified postprocedural states Status: Acute (3) Anemia Code(s): D64.9 - Anemia, unspecified Status: Acute Qualifiers: Chronic kidney disease stage: on chronic dialysis (4) Diabetes Code(s): E11.9 - Type 2 diabetes mellitus without complications Status: Acute - Attending Attestation I have seen and examined him and agree as above assessment and plan, possible discharge he has AV graft placement in left arm swelling status post hematoma evacuation vascular surgery following <Ada Malik - Last Filed: 12/14/18 18:52>
[2018-12-14 21:11] VITALS: RESP 18
[2018-12-15] MEDS: Insulin NovoLOG Aspart Correctional Sugar Inj SQ SCH ×2 (03:54→08:39)
[2018-12-15] MEDS: Heparin - SQ 10,000 UNITS/ML Vial SQ SCH ×2 (03:56→09:55)
[2018-12-15] MEDS: Gabapentin 300 MG Capsule PO SCH (08:39)
[2018-12-15] MEDS: Senna/Docusate Sodium 8.6/50 MG Tablet PO SCH (08:39)
[2018-12-15] MEDS: Furosemide 40 MG Tablet PO SCH (08:40)
[2018-12-15] MEDS: Carvedilol 12.5 MG Tablet PO SCH (08:40)
[2018-12-15] MEDS: Aspirin 325 MG Tablet PO SCH (08:41)
[2018-12-15 09:08] VITALS: BP 140/76; PULSE 80; TEMP 98.1; O2SAT 97
--- NOTE | 2018-12-15 11:12 | P.PNVS ---
Subjective Subjective/Hospital Course: Doing well this morning Denies pain Objective Vital Signs / I&O: Vital Signs 12/14/18 11:56 12/14/18 15:50 12/14/18 21:10 Temperature 97.9 F 98.1 F 98.1 F Pulse Rate 67 86 89 Respiratory Rate 18 16 18 Blood Pressure 133/63 125/60 144/67 H Pulse Oximetry 99 95 98 12/15/18 01:29 12/15/18 05:38 12/15/18 07:44 Temperature 98.4 F 98.2 F 98.1 F Pulse Rate 87 79 80 Respiratory Rate 18 18 18 Blood Pressure 131/66 132/70 140/76 Pulse Oximetry 97 99 97 Intake & Output 12/14/18 12/15/18 12/15/18 18:59 06:59 18:59 Intake Total 161.34 / 161.34 Output Total 5 / 5 Balance 156.34 / 156.34 Weight 148.5 kg Intake: IV 61.34 / 61.34 DDAVP Inj 45.36 MCG In NS Inj 61.34 / 61.34 50 ML @ 122.68 mls/hr IV.SIG ONCE ONE Rx#:[id number] Anesthesia Amount 100 / 100 Output: Estimated Blood Loss 5 / 5 Physical Exam: Left upper extremity wound clean dry intact No hematoma palpated Fistula with good thrill Laboratory Results - last 24 hr 12/14/18 12/14/18 12/14/18 11:53 17:04 21:09 POC Glucose 204 H 304 H 279 H 12/15/18 12/15/18 03:47 07:59 POC Glucose 193 H 237 H Assessment and Plan - Assessment (1) S/P arteriovenous (AV) graft placement Code(s): Z98.890 - Other specified postprocedural states Status: Acute - Plan POD#2 s/p L UE interposition Postop day #1 status post left upper extremity hematoma evacuation Patient is doing well Plan discharge home today
--- NOTE | 2018-12-15 11:17 | P.DS ---
Discharge Summary - Admission Date 12/12/18 09:48 - Admission Diagnosis (1) ESRD (end stage renal disease) on dialysis (2) AVF (arteriovenous fistula) (3) Anemia (4) S/P arteriovenous (AV) graft placement (5) Diabetes - Discharge Diagnosis (1) Anemia Status: Acute (2) S/P arteriovenous (AV) graft placement Status: Acute (3) Diabetes Status: Acute - Summary Brief History from admission: 53 yo male with ESRD with functioning LEFT arm AVF aneurysmal proximal AVF no skin erosion Procedure: L UE access revision Significant Findings: Abnormal Lab Results 12/14/18 12/14/18 12/14/18 11:53 17:04 21:09 POC Glucose 204 H 304 H 279 H 12/15/18 12/15/18 03:47 07:59 POC Glucose 193 H 237 H Hospital Course: 53-year-old male with a past medical history of end-stage renal disease who was admitted to the hospital for left upper extremity AV graft revision. Postop day #1 the patient developed a perigraft hematoma. The patient was taken to the operating room postop day #2 for hematoma evacuation which was done successfully. Postoperatively the patient pain was well controlled. He was tolerating diet. He was having bowel movements. He was discharged home in stable condition. To follow-up with Dr. Hickman as scheduled. Condition on discharge is improved. - Discharge Instructions Any questions or concerns: Call [facility] at [facility] [phone] Discharge Plan - Discharge Disposition Patient Disposition: 01 Discharge Home - Discharge Condition Condition: Good - Discharge Order Discharge Orders: Discharge Order (Routine); Ordered 12/15/18 Ordered By: Shashi Mcduffie - Physicians Team Primary Care Provider: Primary Care Lois Bradley Attending Provider: Ole Hickman Other Providers: Ada Malik MD - Rxs /Orders / Referrals /Forms Prescriptions: New oxycodone-acetaminophen [Percocet] 5-325 mg Tablet 1 tab PO Q4HR Qty: 40 RF: 0 Continue atorvastatin 20 mg Tablet 20 mg PO DAILY carvedilol [Coreg] 12.5 mg Tablet 12.5 mg PO BID furosemide [Lasix] 40 mg Tablet 40 mg PO BID gabapentin [Neurontin] 300 mg Capsule 300 mg PO BID insulin aspart U-100 [Novolog U-100 Insulin aspart] 100 unit/mL Solution 10 units SUB-Q BID insulin glargine [Lantus U-100 Insulin] 100 unit/mL Solution 75 unit SUB-Q BID Referrals: Primary Care Lois Bradley [Primary Care Provider] - See Instructions Ole Hickman MD [Physician] - See Instructions (Your 3W post op follow up is scheduled on 01/03/19 at 2:00 pm ) - Post Discharge Care Plan Care Plan Goals: Discharge Care Plan Goals After Vascular Surgery Contact: Please call [phone] if you have any problems or have questions regarding your hospitalization. Directions to Meet Your Goals: 1. Diet: * You may resume a regular diet as you were eating at home before your admission. 2. Activity: * Increase your activity level gradually. * Keep surgical extremities elevated when at rest. This will help limit the swelling, bruising and discomfort normally present after surgery. * Walking is a good form of light exercise. Go for a walk at least 3 times per day. * No heavy lifting (lifting over 10 pounds) for at least 4 weeks from surgery. * Check with your surgeon to ensure when you are cleared for heavy lifting and full-intensity exercising. * Your strength will gradually improve. * No driving or operating motorized vehicles while on prescription pain medications. * No swimming until wounds fully healed. * Return to work when cleared by MD/PA/BUSINESS DEVELOPMENT ENGINEER. 3. Bathing: Shower daily. * Gently let soap and water run over your incision and pat dry. Do not scrub the incision/wound. * Don't soak in a bath or submerge your incision in water until your incision is healed and evaluated by your physician at follow-up (usually two weeks). 4. Wound Care: INCISION SITE CARE INSTRUCTIONS: * You may leave your incision open to air. * Keep your incision clean and dry, unless showering. See above. * Moisture near the incision will cause the wound to open. * No lotions, creams, ointments, or powders on incisions until they are well- healed. * If you have glue over the incision(s), allow it to fall off naturally in 1-3 weeks * If present, silvio/sutures will be removed 2-3 weeks after surgery during your follow-up clinic visit. * If present, change dressing/bandage when soaked/soiled as needed. * Observe wound daily, checking for signs and symptoms of infection including: foul odor, drainage from the incision, increased redness, increased pain at incision, or increased swelling. 5. Pain Control: Expect post-operative pain for 1-4 weeks after surgery. Your pain will improve gradually. * You may have been provided with a prescription for pain medication. Please take as directed, and be aware of side effects such as drowsiness, constipation and mild stomach discomfort. Pain pills on an empty stomach can cause nausea , so eat a small amount of food, such as crackers, when taking these pills. * Take [id number] stool softeners (Colace or Senna) with your prescribed pain medication. * Acetaminophen (500mg every 6 hours) or Ibuprofen (400mg every 6 hours) may be used in conjunction with narcotics to relieve pain. DO NOT take more than 4 grams (4000mg) of Tylenol in one day, as this can harm your liver. DO NOT take ibuprofen IF: you have an allergy to non-steroidal anti-inflammatory medications, you are taking Coumadin, you have been told you have kidney problems, or you have a history of gastrointestinal bleeding or ulcers. DO NOT take more than 3.2 grams (3200mg) of ibuprofen in one day. * You may also find relief from using heat packs or pads or ice packs. 6. Bowel Regimen for Constipation: * People who undergo surgery are likely to develop post-operative constipation. Exposure to narcotics and changes in diet, fluid intake, and physical activity are known contributors to constipation. We recommend routine stool softeners and/ or laxatives after surgery for most patients. Start by taking one medication. You can increase as directed to relieve constipation. Stop taking these medications if you develop diarrhea. These medications are available over-the- counter and do not require a prescription: * Colace is a stool softener. We recommend starting at 100mg orally twice per day as needed for soft stools and increase to a maximum of 200mg twice daily as needed. * Senna is a laxative that works by keeping water in the intestine to help stool move along the intestinal tract. Take 1 tablet daily as needed for soft stool and increase to a maximum of 2 tablets twice daily as needed. Take Senna with two full glasses of water each time. * Miralax, Dulcolax and Milk of Magnesia are other [id number] laxatives that may be used as needed for post-operative constipation. * Drink 6-8 glasses of water per day. * Consume 15-30g of fiber per day: * Metamucil powder, 1-2 tablespoons 1-2 times/day OR Benefiber powder, 2 tablespoons 4 times/day. * Avoid straining. 7. Follow-Up: Do Not miss your follow-up appointment. Keep up with all your appointments and yearly check ups If you have any of the following symptoms please call [phone] immediately: Excessive swelling of the affected extremity Sudden onset of severe or unusual pain in the affected extremity Pain that gets worse or is not relieved by medication Warmth, redness, or swelling in the skin around the wound Foul drainage from incision Extensive bruising or discoloration Wound that opens up or pulls apart Fever above 101.5F or shaking chills Nausea or vomiting Severe diarrhea or severe constipation Dizziness or fainting Chest pain, shortness of breath, or increased work of breathing Weight gain >10 lbs over 3-4 days Inability to urinate for more than 6 hours Cloudy or foul smelling urine Urge to urinate more often than usual Symptoms to Report to Your Doctor: Temperature 101F or higher Pain uncontrolled by medication Drainage or foul odor from incision Extensive bruising or discoloration Chest pain Shortness of breath Nausea, vomiting or dizziness Call 911: Call 911 right away if you have: Sudden onset of chest pain that is not relieved by medications Shortness of breath
== END 2018-12-15 12:30 | disposition home or self-care (01) ==
LOC: HSDC 06:16 → HSDI 06:16 → N05 18:43
PROVIDERS: ADMIT Surgery; ATTEND Surgery
CPT/HCPCS: 71010; 71045; 76937; 80048; 80074; 82948; 82962; 85025; 85610; 85730; 86850; 86900; 86901; 90774; 90775; 90935; 96365; 96372; 96374; 96375; C1768; G0257; G0378; J0330; J0690; J0886; J1580; J1644; J1815; J2370; J2405; J2440; J2597; J2704; J2720; J3010; J3370; J7050; Q4055; Q4081